=== PATIENT | male | born 1955 | race Caucasian/White ===

== ENCOUNTER 2020-03-17 08:37 | Outpatient (REF) | payer BC, SELFPAY ==
[2020-03-17 11:53] LABS: Estimated Average Glucose 163 mg/dL; Hemoglobin A1c % 7.3 %
[2020-03-17 12:11] LABS: Alanine Aminotransferase 25 U/L (0-40); Albumin Level 4.6 g/dL (3.5-5.0); Alkaline Phosphatase 60 U/L (39-117); Anion Gap 14 (12-20); Aspartate Amino Transferase 18 U/L (5-37); Blood Urea Nitrogen 14 mg/dL (9-16); Calcium 9.2 mg/dL (8.4-10.2); Carbon Dioxide 27 mmol/L (22-29); Chloride 102 mmol/L (96-108); Cholesterol 128 mg/dL; Estimated Glomerular Filt Rate > 60; Glucose Fasting 159 mg/dL (60-99); HDL Cholesterol 31 mg/dL; LDL Cholesterol Calculated 62 mg/dl; Potassium 4.4 mmol/l (3.3-5.1); Sodium 139 mmol/L (135-145); Total Protein 7.2 g/dL (6.5-8.0); Triglycerides 179 mg/dL
== END 2020-03-17 08:38 | disposition home or self-care (01) ==
LOC: HO.MANLR 08:37
PROVIDERS: PCP Internal Medicine; Visit Provider Internal Medicine
DX: E11.9 Type 2 diabetes mellitus without complications (principal)
CPT/HCPCS: 80053; 80061; 83036

== ENCOUNTER 2020-06-28 07:43 | Outpatient (REF) | payer BC, SELFPAY ==
[2020-06-28 12:04] LABS: Alanine Aminotransferase 29 U/L (0-40); Albumin Level 4.5 g/dL (3.5-5.0); Alkaline Phosphatase 65 U/L (39-117); Anion Gap 11 (12-20); Aspartate Amino Transferase 20 U/L (5-37); Bilirubin Total 2.5 mg/dL (0.0-1.0); Blood Urea Nitrogen 18 mg/dL (9-16); Calcium 9.3 mg/dL (8.4-10.2); Carbon Dioxide 31 mmol/L (22-29); Chloride 101 mmol/L (96-108); Cholesterol 125 mg/dL; Estimated Glomerular Filt Rate > 60; Glucose Fasting 169 mg/dL (60-99); HDL Cholesterol 30 mg/dL; LDL Cholesterol Calculated 53 mg/dl; Sodium 139 mmol/L (135-145); Total Protein 7.2 g/dL (6.5-8.0); Triglycerides 211 mg/dL
[2020-06-28 12:06] LABS: Creatinine Urine 176.23 mg/dL; Microalbum/Creatinine Ratio Ur 7.3 ug/mg cr
[2020-06-28 12:35] LABS: Estimated Average Glucose 192 mg/dL; Hemoglobin A1c % 8.3 %
== END 2020-06-28 07:44 | disposition home or self-care (01) ==
LOC: HO.MANLR 07:43
PROVIDERS: PCP Internal Medicine; Visit Provider Internal Medicine
DX: E11.9 Type 2 diabetes mellitus without complications (principal)
CPT/HCPCS: 36415; 80053; 80061; 82043; 83036

== ENCOUNTER 2020-08-20 08:29 | Outpatient (REF) | payer BC, SELFPAY ==
[2020-08-20 12:34] LABS: Estimated Average Glucose 166 mg/dL; Hemoglobin A1c % 7.4 %
== END 2020-08-20 08:30 | disposition home or self-care (01) ==
LOC: HO.MANLDS 08:29
PROVIDERS: PCP Internal Medicine; Visit Provider Internal Medicine
DX: E11.9 Type 2 diabetes mellitus without complications (principal)
CPT/HCPCS: 36415; 83036

== ENCOUNTER 2020-11-15 08:01 | Outpatient (REF) | payer BC, SELFPAY ==
[2020-11-15 11:58] LABS: Estimated Average Glucose 151 mg/dL; Hemoglobin A1c % 6.9 %
== END 2020-11-15 08:02 | disposition home or self-care (01) ==
LOC: HO.MANLDS 08:01
PROVIDERS: PCP Internal Medicine; Visit Provider Internal Medicine
DX: E11.9 Type 2 diabetes mellitus without complications (principal)
CPT/HCPCS: 36415; 83036

== ENCOUNTER 2021-03-16 08:05 | Outpatient (REF) | payer BC, SELFPAY ==
[2021-03-16 11:11] LABS: Estimated Average Glucose 169 mg/dL; Hemoglobin A1c % 7.5 %
== END 2021-03-16 08:06 | disposition home or self-care (01) ==
LOC: HO.MANLDS 08:05
PROVIDERS: PCP Internal Medicine; Visit Provider Internal Medicine
DX: E11.9 Type 2 diabetes mellitus without complications (principal)
CPT/HCPCS: 36415; 83036

== ENCOUNTER 2021-06-15 08:36 | Outpatient (REF) | payer BC, SELFPAY ==
[2021-06-15 11:29] LABS: Estimated Average Glucose 200 mg/dL; Hemoglobin A1c % 8.6 %
[2021-06-15 11:51] LABS: Alanine Aminotransferase 21 U/L (0-40); Albumin Level 4.2 g/dL (3.5-5.0); Alkaline Phosphatase 76 U/L (39-117); Anion Gap 12 (12-20); Aspartate Amino Transferase 19 U/L (5-37); Bilirubin Total 2.1 mg/dL (0.0-1.0); Blood Urea Nitrogen 12 mg/dL (9-16); Calcium 9.2 mg/dL (8.4-10.2); Carbon Dioxide 27 mmol/L (22-29); Chloride 105 mmol/L (96-108); Cholesterol 127 mg/dL; Estimated Glomerular Filt Rate > 60; Glucose Fasting 205 mg/dL (60-99); HDL Cholesterol 30 mg/dL; LDL Cholesterol Calculated 50 mg/dl; Potassium 4.2 mmol/L (3.3-5.1); Sodium 140 mmol/L (135-145); Triglycerides 238 mg/dL
== END 2021-06-15 08:37 | disposition home or self-care (01) ==
LOC: HO.MANLDS 08:36
PROVIDERS: PCP Internal Medicine; Visit Provider Internal Medicine
DX: E11.9 Type 2 diabetes mellitus without complications (principal)
CPT/HCPCS: 36415; 80053; 80061; 83036

== ENCOUNTER 2021-06-22 11:07 | Outpatient (REF) | payer BC, SELFPAY ==
[2021-06-22 11:19] LABS: Appearance Urine HAZY; Color Urine YELLOW; Glucose Urine UA 250 MG/DL (NEG); Leukocyte Esterase Urine NEG (NEG); Nitrite Urine NEG (NEG); Specific Gravity - Urine >= 1.030 (1.005-1.025); Urine Blood NEG (NEG); Urine Ketones NEG (NEG); Urine Protein NEG (NEG-TRACE)
[2021-06-22 11:44] LABS: Creatinine Urine 216.08 mg/dL
== END 2021-06-22 11:08 | disposition home or self-care (01) ==
LOC: HO.LNP 11:07
PROVIDERS: Visit Provider Internal Medicine
DX: E11.9 Type 2 diabetes mellitus without complications (principal)
CPT/HCPCS: 81003; 82043

== ENCOUNTER 2021-11-08 08:06 | Outpatient (REF) | payer BC, SELFPAY ==
[2021-11-08 11:38] LABS: Alanine Aminotransferase 20 U/L (0-40); Albumin Level 4.5 g/dL (3.5-5.0); Alkaline Phosphatase 74 U/L (39-117); Anion Gap 14 (12-20); Aspartate Amino Transferase 17 U/L (5-37); Bilirubin Total 2.3 mg/dL (0.0-1.0); Blood Urea Nitrogen 14 mg/dL (9-16); Calcium 9.3 mg/dL (8.4-10.2); Carbon Dioxide 29 mmol/L (22-29); Chloride 102 mmol/L (96-108); Cholesterol 121 mg/dL; Estimated Glomerular Filt Rate > 60; Glucose Random 167 mg/dL (60-115); HDL Cholesterol 31 mg/dL; LDL Cholesterol Calculated 60 mg/dl; Potassium 4.1 mmol/L (3.3-5.1); Sodium 141 mmol/L (135-145); Total Protein 7.3 g/dL (6.5-8.0); Triglycerides 151 mg/dL
[2021-11-08 11:42] LABS: Creatinine Urine 128.71 mg/dL; Microalbum/Creatinine Ratio Ur 9.3 ug/mg cr
[2021-11-08 11:46] LABS: Estimated Average Glucose 186 mg/dL; Hemoglobin A1c % 8.1 %
== END 2021-11-08 08:07 | disposition home or self-care (01) ==
LOC: HO.MANLDS 08:06
PROVIDERS: Visit Provider Internal Medicine
DX: E11.9 Type 2 diabetes mellitus without complications (principal)
CPT/HCPCS: 36415; 80053; 80061; 82043; 83036

== ENCOUNTER 2022-05-03 07:55 | Outpatient (REF) | payer MEDICARE, SELFPAY ==
[2022-05-03 12:04] LABS: Creatinine Urine 172.91 mg/dL; Microalbum/Creatinine Ratio Ur 14.4 ug/mg cr
[2022-05-03 12:25] LABS: Alanine Aminotransferase 26 U/L (0-40); Alkaline Phosphatase 89 U/L (39-117); Anion Gap 13 (12-20); Aspartate Amino Transferase 20 U/L (5-37); Bilirubin Total 2.7 mg/dL (0.0-1.0); Blood Urea Nitrogen 17 mg/dL (9-16); Calcium 8.8 mg/dL (8.4-10.2); Carbon Dioxide 26 mmol/L (22-29); Chloride 102 mmol/L (96-108); Cholesterol 142 mg/dL; Estimated Glomerular Filt Rate > 60; Glucose Random 245 mg/dL (60-115); HDL Cholesterol 22 mg/dL; Potassium 3.8 mmol/L (3.3-5.1); Sodium 137 mmol/L (135-145); Total Protein 6.8 g/dL (6.5-8.0); Triglycerides 474 mg/dL
[2022-05-03 12:28] LABS: Estimated Average Glucose 260 mg/dL; Hemoglobin A1c % 10.7 %
== END 2022-05-03 07:56 | disposition home or self-care (01) ==
LOC: HO.MANLDS 07:55
PROVIDERS: Visit Provider Internal Medicine
DX: E11.9 Type 2 diabetes mellitus without complications (principal)
CPT/HCPCS: 36415; 80053; 80061; 82043; 83036

== ENCOUNTER 2022-08-15 08:19 | Outpatient (REF) | payer MEDICARE, SELFPAY ==
[2022-08-15 11:44] LABS: Estimated Average Glucose 272 mg/dL; Hemoglobin A1c % 11.1 %
== END 2022-08-15 08:20 | disposition home or self-care (01) ==
LOC: HO.MANLDS 08:19
PROVIDERS: Visit Provider Internal Medicine
DX: E11.9 Type 2 diabetes mellitus without complications (principal)
CPT/HCPCS: 36415; 83036

== ENCOUNTER 2022-11-22 08:12 | Outpatient (REF) | payer MEDICARE, SELFPAY ==
[2022-11-22 14:07] LABS: Estimated Average Glucose 166 mg/dL; Hemoglobin A1c % 7.4 %
[2022-11-22 14:34] LABS: Alanine Aminotransferase 27 U/L (0-40); Albumin Level 4.5 g/dL (3.5-5.0); Alkaline Phosphatase 65 U/L (39-117); Anion Gap 14 (12-20); Aspartate Amino Transferase 22 U/L (5-37); Bilirubin Total 1.8 mg/dL (0.0-1.0); Blood Urea Nitrogen 11 mg/dL (9-16); Carbon Dioxide 28 mmol/L (22-29); Chloride 105 mmol/L (96-108); Cholesterol 145 mg/dL; Estimated Glomerular Filt Rate > 60; Glucose Random 169 mg/dL (60-115); HDL Cholesterol 31 mg/dL; LDL Cholesterol Calculated 54 mg/dl; Potassium 4.5 mmol/L (3.3-5.1); Sodium 142 mmol/L (135-145); Total Protein 7.8 g/dL (6.5-8.0); Triglycerides 303 mg/dL
[2022-11-22 14:51] LABS: Creatinine Urine 44.57 mg/dL; Microalbumin Urine < 5.0 mg/L
== END 2022-11-22 08:13 | disposition home or self-care (01) ==
LOC: HO.MANLDS 08:12
PROVIDERS: Visit Provider Internal Medicine
DX: E11.9 Type 2 diabetes mellitus without complications (principal)
CPT/HCPCS: 36415; 80053; 80061; 82043; 83036

== ENCOUNTER 2023-03-06 07:53 | Outpatient (REF) | payer MEDICARE, SELFPAY ==
[2023-03-06 13:40] LABS: Estimated Average Glucose 209 mg/dL; Hemoglobin A1c % 8.9 % (<6.0)
[2023-03-06 13:49] LABS: Alanine Aminotransferase 22 U/L (0-40); Albumin Level 4.2 g/dL (3.5-5.0); Alkaline Phosphatase 89 U/L (39-117); Anion Gap 10 (12-20); Aspartate Amino Transferase 22 U/L (5-37); Bilirubin Total 1.4 mg/dL (0.0-1.0); Blood Urea Nitrogen 9 mg/dL (9-16); Calcium 9.7 mg/dL (8.4-10.2); Carbon Dioxide 32 mmol/L (22-29); Chloride 101 mmol/L (96-108); Cholesterol 119 mg/dL (<200); Estimated Glomerular Filt Rate > 60; Glucose Random 150 mg/dL (60-115); HDL Cholesterol 30 mg/dL (>40); LDL Cholesterol Calculated 44 mg/dL (<100); Potassium 3.9 mmol/L (3.3-5.1); Sodium 139 mmol/L (135-145); Total Protein 7.4 g/dL (6.5-8.0); Triglycerides 226 mg/dL (<150)
== END 2023-03-06 07:54 | disposition home or self-care (01) ==
LOC: HO.MANLDS 07:53
PROVIDERS: Visit Provider Internal Medicine
DX: E11.9 Type 2 diabetes mellitus without complications (principal)
CPT/HCPCS: 36415; 80053; 80061; 83036

== ENCOUNTER 2023-06-06 08:15 | Outpatient (REF) | payer MEDICARE, SELFPAY ==
[2023-06-06 13:54] LABS: Estimated Average Glucose 226 mg/dL; Hemoglobin A1c % 9.5 % (<6.0)
[2023-06-06 13:56] LABS: Alanine Aminotransferase 27 U/L (0-40); Albumin Level 4.2 g/dL (3.5-5.0); Alkaline Phosphatase 64 U/L (39-117); Anion Gap 14 (12-20); Aspartate Amino Transferase 21 U/L (5-37); Bilirubin Total 1.7 mg/dL (0.0-1.0); Blood Urea Nitrogen 13 mg/dL (9-16); Calcium 9.3 mg/dL (8.4-10.2); Carbon Dioxide 28 mmol/L (22-29); Chloride 101 mmol/L (96-108); Cholesterol 151 mg/dL (<200); Estimated Glomerular Filt Rate > 60; Glucose Random 180 mg/dL (60-115); HDL Cholesterol 31 mg/dL (>40); LDL Cholesterol Calculated 72 mg/dL (<100); Potassium 4.3 mmol/L (3.3-5.1); Sodium 139 mmol/L (135-145); Total Protein 7.3 g/dL (6.5-8.0); Triglycerides 240 mg/dL (<150)
[2023-06-06 14:15] LABS: Creatinine Urine 73.07 mg/dL; Microalbum/Creatinine Ratio Ur 6.8 ug/mg cr (<30)
== END 2023-06-06 08:16 | disposition home or self-care (01) ==
LOC: HO.MANLDS 08:15
PROVIDERS: Visit Provider Internal Medicine
DX: E11.9 Type 2 diabetes mellitus without complications (principal)
CPT/HCPCS: 36415; 80053; 80061; 82043; 82570; 83036

== ENCOUNTER 2023-10-24 08:12 | Outpatient (REF) | payer MEDICARE, SELFPAY ==
[2023-10-24 13:37] LABS: Alanine Aminotransferase 22 U/L (0-40); Albumin Level 4.5 g/dL (3.5-5.0); Alkaline Phosphatase 71 U/L (39-117); Anion Gap 14 (12-20); Aspartate Amino Transferase 20 U/L (5-37); Bilirubin Total 2.5 mg/dL (0.0-1.0); Blood Urea Nitrogen 18 mg/dL (9-16); Calcium 9.7 mg/dL (8.4-10.2); Carbon Dioxide 27 mmol/L (22-29); Chloride 103 mmol/L (96-108); Estimated Glomerular Filt Rate > 60; Glucose Random 167 mg/dL (60-115); Potassium 4.3 mmol/L (3.3-5.1); Sodium 140 mmol/L (135-145); Total Protein 7.6 g/dL (6.5-8.0)
[2023-10-24 13:44] LABS: Estimated Average Glucose 180 mg/dL; Hemoglobin A1c % 7.9 % (<6.0)
== END 2023-10-24 08:13 | disposition home or self-care (01) ==
LOC: HO.MANLDS 08:12
PROVIDERS: Visit Provider Internal Medicine
DX: E11.9 Type 2 diabetes mellitus without complications (principal)
CPT/HCPCS: 36415; 80053; 83036

== ENCOUNTER 2024-02-04 07:47 | Outpatient (REF) | payer MEDICARE, SELFPAY ==
[2024-02-04 13:41] LABS: Estimated Average Glucose 169 mg/dL; Hemoglobin A1C 241.8436 umol/L; Hemoglobin A1c % 7.5 % (<6.0); Total Hemoglobin (HGBA1C) 4169.4433 umol/L
[2024-02-04 14:20] LABS: Alanine Aminotransferase 18 U/L (0-40); Albumin Level 4.4 g/dL (3.5-5.0); Alkaline Phosphatase 92 U/L (39-117); Anion Gap 13 (12-20); Aspartate Amino Transferase 30 U/L (5-37); Bilirubin Total 1.8 mg/dL (0.0-1.0); Blood Urea Nitrogen 12 mg/dL (9-16); Calcium 9.7 mg/dL (8.4-10.2); Carbon Dioxide 27 mmol/L (22-29); Chloride 104 mmol/L (96-108); Estimated Glomerular Filt Rate > 60; Glucose Random 146 mg/dL (60-115); Sodium 140 mmol/L (135-145); Total Protein 7.7 g/dL (6.5-8.0)
== END 2024-02-04 07:48 | disposition home or self-care (01) ==
LOC: HO.MANLDS 07:47
PROVIDERS: Visit Provider Internal Medicine
DX: E11.9 Type 2 diabetes mellitus without complications (principal)
CPT/HCPCS: 36415; 80053; 83036

== ENCOUNTER 2024-06-18 07:41 | Outpatient (REF) | payer MEDICARE, SELFPAY ==
--- OUTSIDE RECORDS SUMMARY | 2024-06-18 07:44 | XMS_ITS | Data Portability ---
Author Organization [facility] Address [address] [place] [address] Assessment Encounter Date Assessment Date Assessment LastModified by Organization Details LastModified Time 11/29/2022 11/29/2022 [id number] [place] [id number] (QUALITY REVIEW TRAINER) [facility] MODERATE MUST MEET 2 OUT OF 3 ELEMENTS: PROBLEMS, DATA OR RISK ELEMENT 1: PROBLEMS ADDRESSED 1 OR MORE CHRONIC ILLNESS WITH EXACERBATION OR 2 OR MORE STABLE CHRONIC ILLNESSES OR 1 UNDIAGNOSED NEW PROBLEM OR 1 ACUTE ILLNESS W/SYMPTOMS OR 1 ACUTE COMPLICATED INJURY ELEMENT 2: DATA MUST MEET 1 OF 3 CATEGORIES CATEGORY 1: REVIEW OF PRIOR EXTERNAL NOTES, REVIEW OF RESULTS, ORDERING OF EACH TEST, ASSESSMENT REQUIRING INDEPENDENT HISTORIAN OR CATEGORY 2: INDEPENDENT INTERPRETATION OF TESTS BY ANOTHER PHYSICIAN OR SPECIALIST OR CATEGORY 3: DISCUSSION OF MGT OR TEST INTERPRETATION W/EXTERNAL PHYSICIAN OR SPECIALIST ELEMENT 3: RISK RISK OF COMPLICATIONS AND/OR MORBIDITY OR MORTALITY OF PATIENT MANAGEMENT PROVIDER MUST THOROUGHLY DOCUMENT EACH ELEMENT THAT IS COVERED Not available 11/29/2022 12:07:26 03/12/2023 03/12/2023 [id number] [place] [id number] (QUALITY REVIEW TRAINER) [facility] MODERATE MUST MEET 2 OUT OF 3 ELEMENTS: PROBLEMS, DATA OR RISK ELEMENT 1: PROBLEMS ADDRESSED 1 OR MORE CHRONIC ILLNESS WITH EXACERBATION OR 2 OR MORE STABLE CHRONIC ILLNESSES OR 1 UNDIAGNOSED NEW PROBLEM OR 1 ACUTE ILLNESS W/SYMPTOMS OR 1 ACUTE COMPLICATED INJURY ELEMENT 2: DATA MUST MEET 1 OF 3 CATEGORIES CATEGORY 1: REVIEW OF PRIOR EXTERNAL NOTES, REVIEW OF RESULTS, ORDERING OF EACH TEST, ASSESSMENT REQUIRING INDEPENDENT HISTORIAN OR CATEGORY 2: INDEPENDENT INTERPRETATION OF TESTS BY ANOTHER PHYSICIAN OR SPECIALIST OR CATEGORY 3: DISCUSSION OF MGT OR TEST INTERPRETATION W/EXTERNAL PHYSICIAN OR SPECIALIST ELEMENT 3: RISK RISK OF COMPLICATIONS AND/OR MORBIDITY OR MORTALITY OF PATIENT MANAGEMENT PROVIDER MUST THOROUGHLY DOCUMENT EACH ELEMENT THAT IS COVERED Not available 03/12/2023 11:02:08 10/31/2023 10/31/2023 [id number] [place] [id number] (QUALITY REVIEW TRAINER) [facility] MODERATE MUST MEET 2 OUT OF 3 ELEMENTS: PROBLEMS, DATA OR RISK ELEMENT 1: PROBLEMS ADDRESSED 1 OR MORE CHRONIC ILLNESS WITH EXACERBATION OR 2 OR MORE STABLE CHRONIC ILLNESSES OR 1 UNDIAGNOSED NEW PROBLEM OR 1 ACUTE ILLNESS W/SYMPTOMS OR 1 ACUTE COMPLICATED INJURY ELEMENT 2: DATA MUST MEET 1 OF 3 CATEGORIES CATEGORY 1: REVIEW OF PRIOR EXTERNAL NOTES, REVIEW OF RESULTS, ORDERING OF EACH TEST, ASSESSMENT REQUIRING INDEPENDENT HISTORIAN OR CATEGORY 2: INDEPENDENT INTERPRETATION OF TESTS BY ANOTHER PHYSICIAN OR SPECIALIST OR CATEGORY 3: DISCUSSION OF MGT OR TEST INTERPRETATION W/EXTERNAL PHYSICIAN OR SPECIALIST ELEMENT 3: RISK RISK OF COMPLICATIONS AND/OR MORBIDITY OR MORTALITY OF PATIENT MANAGEMENT PROVIDER MUST THOROUGHLY DOCUMENT EACH ELEMENT THAT IS COVERED Not available 10/31/2023 09:08:16 02/13/2024 02/13/2024 [id number] [place] [id number] (QUALITY REVIEW TRAINER) [facility] MODERATE MUST MEET 2 OUT OF 3 ELEMENTS: PROBLEMS, DATA OR RISK ELEMENT 1: PROBLEMS ADDRESSED 1 OR MORE CHRONIC ILLNESS WITH EXACERBATION OR 2 OR MORE STABLE CHRONIC ILLNESSES OR 1 UNDIAGNOSED NEW PROBLEM OR 1 ACUTE ILLNESS W/SYMPTOMS OR 1 ACUTE COMPLICATED INJURY ELEMENT 2: DATA MUST MEET 1 OF 3 CATEGORIES CATEGORY 1: REVIEW OF PRIOR EXTERNAL NOTES, REVIEW OF RESULTS, ORDERING OF EACH TEST, ASSESSMENT REQUIRING INDEPENDENT HISTORIAN OR CATEGORY 2: INDEPENDENT INTERPRETATION OF TESTS BY ANOTHER PHYSICIAN OR SPECIALIST OR CATEGORY 3: DISCUSSION OF MGT OR TEST INTERPRETATION W/EXTERNAL PHYSICIAN OR SPECIALIST ELEMENT 3: RISK RISK OF COMPLICATIONS AND/OR MORBIDITY OR MORTALITY OF PATIENT MANAGEMENT PROVIDER MUST THOROUGHLY DOCUMENT EACH ELEMENT THAT IS COVERED Not available 02/13/2024 09:51:55 Plan of Treatment Reminders Order Date Submit Date Provider Last Modified By Organization Details Last Modified Time Details Appointments FOLLOW UP 15 2024 10:45A M DR MEEHAN Not available Not available Not available Lab lipid panel, serum 2023 [facility], [address] [place] [address], [id number], 02/13/2024 09:58:02 CMP, serum or plasma 2023 024 [facility], [address] [place] [address], [id number], 02/13/2024 09:58:01 PSA, serum or plasma 2023 024 [facility], [address] [place] [address], [id number], 02/13/2024 09:58:02 HbA1c (hemoglo bin A1c), blood 2023 024 [facility], [address] [place] [address], [id number], 02/13/2024 09:58:02 HbA1c (hemoglo bin A1c), blood 2022 023 [facility], [address] [place] [address], [id number], 06/07/2023 11:31:22 CMP, serum or plasma 2022 023 [facility], [address] [place] [address], [id number], 06/07/2023 11:31:23 HbA1c (hemoglo bin A1c), blood 2023 024 [facility], [address] [place] [address], [id number], 06/07/2023 11:31:22 CMP, serum or plasma 2023 024 [facility], [address] [place] [address], [id number], 06/07/2023 11:31:23 Referral None recorded . Procedures None recorded . Surgeries None recorded . Imaging None recorded . Medication Orders None recorded . Patient TargetsNo targets recorded. Patient Instructions Encounter Date Encounter Id Patient Instructions Last Modified By Organization Details Last Modified Time 07/06/2023 [id number] learning about type 2 diabetes Not available 07/06/2023 09:34:05 type 2 diabetes: care instructions Not available 07/06/2023 09:34:04 02/13/2024 [id number] migraine aura without a headache: care instructions Not available 02/13/2024 09:55:59 learning about type 2 diabetes Not available 02/13/2024 09:56:00 type 2 diabetes: care instructions Not available 02/13/2024 09:56:00 Reason for Referral None Reported. Results Created Date Observation Date Name Description Value Unit Range Abnormal Flag Note LastModifiedBy Organization Detail LastModifiedTime 02/04/20 24 02/04/2024 HbA1c (hemo globi n A1c), blood A1C 7.5 abnormal Not Available [facility] (Medical Records) [address] [place] [address], [id number], 02/05/2024 11:36:11 Result Notes None recorded. 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 Not Available [facility] 3 11:34:57 [facility] 52037957 Completed 201707/09/2019 Ed Meehan DO [address] [place] [address], [phone], [facility] 0 09:35:44 Vertigo 840001215 Completed 201702/13/2024 Ed Meehan DO [address] [place] [address], [phone], [facility] 4 09:54:06 Migraine aura without headache 244859503 Completed 201702/13/2024 migraine causes vertigo Ed Meehan DO [address] [place] [address], [phone], [facility] 4 09:54:00 M??ni??r e's disease 19675674 Active 2021 Not Available [facility] 3 11:34:57 Type 2 diabetes mellitus 25018909 Active 2017 Not Available [facility] 3 11:34:57 Problem Notes None recorded. Procedures Surgical History Date Name Laterality Status Provider Name and Address Organization Details Recorded Time 4 Colonoscopy completed Becky Delgado [facility] 11/06/2018 10:14:37 Imaging Results None recorded. Procedure Notes None recorded. Medical Equipment None Reported. Allergies Allergen ID Allergen Name Allergen Category Reaction Reaction Severity Criticality Documentation Date Start Date Code Code System Note Provider Name and Address Organization Details Recorded Time 4053 Januvia medicatio n diarrhea Not available Not available 12/17/2019 89129 6 RxNorm Becky Delgado [facility] 0 10:52:20 Medications Name Sig Start Date Stop Date Status Note LastModified by Organization Details LastModified Time atorvastati n 80 mg tablet TAKE 1 TABLET BY MOUTH EVERYDAY AT BEDTIME 2023 active Not Available Not Available Not Avai lable atenolol 25 mg tablet take 1 tablet by mouth once a day 07/08 completed Not Available Not Available Not Available gemfibrozil 600 mg tablet TAKE 1 TABLET BY MOUTH TWICE A DAY active Not Available Not Available No t Available metformin 1,000 mg tablet TAKE 1 TABLET BY MOUTH TWICE A DAY active Not Available Not Available No t Available gabapentin 300 mg capsule TAKE 4 CAPSULES BY MOUTH AT BEDTIME active Not Available Not Available No t Available metformin ER 500 mg tablet,exte nded release 24 hr TAKE 1 TABLET BY MOUTH EVERY DAY 07/08 completed Not Available Not Available Not Available Pneumovax-2 3 25 mcg/0.5 mL injection syringe PHARMACY ADMINISTE RED 07/05 completed Not Available Not Available Not Available Aspir-81 Take one tablet every day. 11/06 completed Not Available Not Available Not Available GaviLyte-G 236 gram-22.74 gram-6.74 gram-5.86 gram oral solution 07/08 completed Not Available Not Available Not Available Jardiance 10 mg tablet TAKE 1 TABLET BY MOUTH EVERY DAY 2024 active Not Available Not Available Not Avai lable Trulicity 1.5 mg/0.5 mL subcutaneou s pen injector INJECT 0.5 ML SUBCUTANE OUSLY WEEKLY FOR 28 DAYS 2023 active Not Available Not Available Not Avai lable Trulicity 0.75 mg/0.5 mL subcutaneou s pen injector INJECT 0.75 MG EVERY WEEK BY SUBCUTANE OUS ROUTE FOR 30 DAYS. 03/23 completed Not Available Not Available Not Available Afluria (PF) 45 mcg(15 mcg x 3)/0.5 mL intramuscul ar syringe 12/12 completed Not Available Not Available Not Available Shingrix (PF) 50 mcg/0.5 mL intramuscul ar suspension, kit PHARMACY ADMINISTE RED 07/05 completed Not Available Not Available Not Available Bydureon BCise 2 mg/0.85 mL subcutaneou s auto-inject or INJECT 2MG SUBCUTANE OUSLY EVERY WEEK active Not Available Not Available No t Available Afluria Quad (PF) 60 mcg (15 mcg x 4)/0.5 mL IM syringe 03/15 completed Not Available Not Available Not Available Afluria Qd 2018- (36 mos up)(PF)60 mcg (15 mcg x4)/0.5 mL IM syringe 02/12 completed Not Available Not Available Not Available Fluzone Quad (PF) 60 mcg (15 mcg x 4)/0.5 mL IM syringe TO BE ADMINISTE RED BY PHARMACIS T FOR IMMUNIZAT ION 12/16 completed Not Available Not Available Not Available Trulicity 3 mg/0.5 mL subcutaneou s pen injector INJECT 0.5 ML SUBCUTANE OUSLY WEEKLY 10/30 completed Not Available Not Available Not Available Vitals Date Recorded Body height Body mass index (BMI) Body weight Heart rate Oxygen saturation Oxygen saturation in Arterial blood by Pulse oximetry Systolic blood pressure Diastolic blood pressure Provider Name and Address Organization Details Last Updated DateTime 3 168.28 cm 26.4 kg/m2 53549.7 4 g 94 /min 96 % 96 % 128 mm[Hg] 74 mm[Hg] [facility] 3 11:52:08 Date Recorded Body height Body mass index (BMI) Body weight Heart rate Oxygen saturation Oxygen saturation in Arterial blood by Pulse oximetry Systolic blood pressure Diastolic blood pressure Provider Name and Address Organization Details Last Updated DateTime 3 168.28 cm 26.7 kg/m2 33429.9 3 g 93 /min 95 % 95 % 108 mm[Hg] 75 mm[Hg] Juli Huang [facility] 3 10:40:42 Date Recorded Body height Body mass index (BMI) Body weight Systolic blood pressure Diastolic blood pressure Provider Name and Address Organization Details Last Updated DateTime 07/06/2023 168.28 cm 26.7 kg/m2 68323.93 g 140 mm[Hg] 64 mm[Hg] Millieanna Thompsonmond [facility] 4 09:10:26 Date Recorded Body height Body mass index (BMI) Body weight Heart rate Oxygen saturation Oxygen saturation in Arterial blood by Pulse oximetry Systolic blood pressure Diastolic blood pressure Provider Name and Address Organization Details Last Updated DateTime 4 168.28 cm 26.6 kg/m2 88099.3 3 g 81 /min 95 % 95 % 120 mm[Hg] 68 mm[Hg] [facility] 4 08:54:21 Date Recorded Body height Body mass index (BMI) Body weight Heart rate Oxygen saturation Oxygen saturation in Arterial blood by Pulse oximetry Systolic blood pressure Diastolic blood pressure Provider Name and Address Organization Details Last Updated DateTime 168.91 cm 26.6 kg/m2 92970.9 3 g 90 /min 98 % 98 % 124 mm[Hg] 74 mm[Hg] Gregoryruben Miller [facility] 4 09:41:04 Social History Question Answer Notes LastModified by Organizat ion Details LastModified Time Tobacco Smoking Status Never Smoker Not Available [facility] 02/17/2020 03:36:23 What Was The Date Of Your Most Recent Tobacco Screening? 02/13/2024 [email or web address] Information not available 02/13/2024 Do You Use Any Illicit Or Recreational Drugs? No Information not available 06/22/2021 Do You Or Have You Ever Used Any Other Forms Of Tobacco Or Nicotine? No Information not available 06/22/2021 Sex: Unknown Functional Status None recorded. Mental Status None recorded. Family History Nothing Reported. Medical History No medical history recorded. Immunizations Vaccine Type Date Status Note Provider Nam e and Address Organization Details Recorded Time COVID-19, mRNA, LNP-S, PF, 100 mcg/0.5mL dose or 50 mcg/0.25mL dose 02/17/20 21 [facility]2021 09:25:31 Influenza, split virus, quadrivalent, preservative 02/17/20 21 completed [facility] 03/23/2021 09:25:38 COVID-19, mRNA, LNP-S, PF, 100 mcg/0.5mL dose or 50 mcg/0.25mL dose 07/15/19 22 completed Jodi Acuña [facility] 07/18/2021 08:14:05 Influenza, split virus, quadrivalent, preservative 01/31/20 18 completed Ed Meehan DO [address] [place] [address], [phone], [facility] 01/31/2018 16:22:55 influenza, unspecified formulation 12/29/19 24 completed Christa Vora [facility] 01/01/2024 11:58:23 Influenza, split virus, quadrivalent, preservative 01/16/20 19 completed Becky Delgado [facility] 05/21/2019 11:59:44 Influenza, split virus, quadrivalent, preservative 12/11/19 20 completed Ed Meehan DO [address] [place] [address], [phone], [facility] Internal [facility] 12/13/2019 16:42:57 COVID-19, mRNA, LNP-S, PF, 100 mcg/0.5mL dose or 50 mcg/0.25mL dose 04/28/19 21 completed Ed Meehan DO [address] [place] [address], [phone], [facility] 07/05/2020 10:03:07 COVID-19, mRNA, LNP-S, PF, 100 mcg/0.5mL dose or 50 mcg/0.25mL dose 05/28/19 21 completed Ed Meehan DO [address] [place] [address], [phone], [facility] 07/05/2020 10:03:15 pneumococcal polysaccharide PPV23 12/19/19 20 completed Ed Meehan DO [address] [place], [phone], [facility] 07/05/2020 10:03:31 zoster, unspecified formulation 12/19/19 20 completed Ed Alex DO [address] [place], [address], [facility] 07/05/2020 10:03:53 zoster recombinant 07/20/19 21 completed Ed RobbinRolly Meehan DO [address] [place], [address], [facility] 07/21/2020 07:14:53 Past Encounters Encounter ID Performer Location Encounter Start Date Encounter Closed Date Diagnosis/Indication Diagnosis SNOMED-CT Code Diagnosis ICD10 Code Diagnosis Note [id number] Ed Meehan [facility] [address] [place] [address],[place] [address] 08/20/2017 13:54:33 08/20/2017 15:06:47 Diabetes mellitus 71520708 E11.9 doing well admits to some diet prob instructed agian re carbs intake and night time eating portion control Essential hypertension 43813302 I10 stable with excellent results at work was initially high but now has improved quite a bit [id number] Ed Meehan [facility] [address] [place] [address],[place] [address] 12/12/2017 13:50:14 12/12/2017 14:31:22 Type 2 diabetes mellitus 81770667 E11.9 no change in issues or meds will cont current tx Essential hypertension 89007211 I10 stable with excellent results at work was initially high but now has improved quite a bit [id number] Ed Meehan [facility] [address] [facility],[place] [address] [facility] [place] [address] 03/15/2018 10:15:42 03/15/2018 15:31:17 Type 2 diabetes mellitus 40377624 E11.9 no change in issues or meds will be better with daily diet and will drop this a1c on hsi own without meds will rechk in june Essential hypertension 20106187 I10 stable with excellent results at work was initially high but now has improved quite a bit Adult heal th examination 944007742 Z00.00 Hypertriglyceridemia 302 459667 E78.2 LDL 57 doing great will cont atorvastat well tolerated [id number] Ed Meehan [facility] [address] [facility] [address] [place] [address] 07/05/2018 10:30:21 07/05/2018 12:19:52 Type 2 diabetes mellitus 86057599 E11.9 still elevated a1c at 7.8 no change in issues or meds will be better with daily diet and will drop this a1c on his own without meds will rechk in october BUT IF IT IS STILL ELEVATED A!C WE WILL ADD METFORMIN Essential hypertension 49384981 I10 stable with excellent results at work was initially high but now has improved quite a bit [id number] Ed Meehan [facility] Internal [facility] [address] [place] [address] 11/06/2018 10:02:10 11/06/2018 11:00:55 Essential hypertension 02182275 I10 stable with excellent results at work was initially high but now has improved quite a bit Type 2 constantine betes mellitus 92501639 E11.9 a1c is still elevated at 8 we will review his diet at length IT IS STILL ELEVATED A!C WE WILL ADD METFORMIN 500 and rechk in 3 mo Hypertriglyceridemia 302 545414 E78.2 LDL 57 doing great will cont atorvastat well tolerated [id number] Ed Meehan [facility] [address] [place] [address] 02/12/2019 09:55:17 02/12/2019 11:24:31 Type 2 diabetes mellitus 17107290 E11.9 a1c is down to 7.4 was 8 we will review his diet at length doing ok with with metformin cont his walking and wgt loss and rechk in 3 mo Hypertriglyceridemia 302 237660 E78.2 level is over 500 so unable to calc the LDL will cont to work on diet Essential hypertension 28811322 I10 stable with excellent results at work no change in meds [id number] Ed Meehan [facility] [address] [facility],[place] [address] 05/21/2019 11:57:32 05/21/2019 13:38:48 Essential hypertension 71758666 I10 stable with excellent results at work no change in meds Type 2 constantine betes mellitus 14764533 E11.9 A1C elevated to 9.3 from 8.0 Discussed importance of lowering glucose dramatical ly Will increase metformin to BID 1000mg Hypertriglyceridemia 302 867354 E78.2 level is over 800 so unable to calc the LDL will cont to work on diet and take gem daily [id number] Ed Meehan, [facility] [address] [facility] [address] 07/09/2019 09:22:54 07/09/2019 10:02:32 Active or passive immunization 680235122 Z23 Hepatitis C screening 41 7986591 Z11.59 Type 2 constantine betes mellitus 86275384 E11.9 A1C was elevated to 9.3 from 8.0 but is now down to 8.9 Discussed importance of lowering glucose dramatical ly as he is doiung Will increase metformin to BID 1000mg Elevated blood-pressure reading without diagnosis of hypertension 397246146 R03.0 bp has been stable since off the atenolol belive no longer hypertensi ve now with good diet and exercise we will cont to hold the atenolol and monitor [id number] Ed Meehan [facility] [address] [facility],[place] [address] 10/20/2019 11:01:18 10/20/2019 11:53:24 Type 2 diabetes mellitus 92857701 E11.9 A1C was elevated to10.1 and wa s 8.9, 9.3 from 8.0 Discussed importance of lowering glucose metformin to BID 1000mg and is compliant bc of this climb, we will start januvia 100 samples given and rechk in 2 mo a1c if this doesnt work we will have to try to get him Trulicity Hypertriglyceridemia 302 009867 E78.2 level is over 800 so unable to calc the LDL will cont to work on diet and take gem daily [id number] Ed Meehan [facility] [address] [facility],[place] [address] 12/17/2019 10:21:06 12/17/2019 11:14:29 Type 2 diabetes mellitus 22698117 E11.9 A1C was improved to 7.8 from 10.1 and wa s 8.9, 9.3 from 8.0 Discussed importance of lowering glucose metformin to BID 1000mg and is compliant bc of the initial lab being high he was tried on januvia but did not tolerate this instead he cut out his sugars and carbs and exercised every day and is now down to 7.8 Hepatitis C screening 41 5633283 Z11.59 Hypertriglyceridemia 302 205538 E78.2 level is over 800 so unable to calc the LDL will cont to work on diet and take gem daily [id number] Ed Meehan, [facility] [address] [facility], [place] [facility] [place] [address] 03/30/2020 08:42:40 03/30/2020 11:36:28 M??ni??re's disease 19278953 H81.09 Type 2 constantine betes mellitus 63780204 E11.9 A1C was improved to 7.3 and was 7.8 from 10.1 and wa s 8.9, 9.3 from 8.0 Discussed importance of lowering glucose and he is continuing to do well metformin to BID 1000mg and is compliant bc of the initial lab being high he was tried on januvia but did not tolerate this instead he cut out his sugars and carbs and exercised every day and is now down to 7.8 Vertigo 367672027 R42 asympotmat ic for 3 years Hypertriglyceridemia 302 113283 E78.2 LDL is now 63 triglyceri althea are only 179 was >800 will cont to work on diet and take gem daily doing awesome [id number] Ed Meehan [facility] [address] [facility] [address] [place], [place] [facility] [place] [address] 07/05/2020 09:56:48 07/05/2020 10:26:24 Type 2 diabetes mellitus 17188686 E11.9 A1C has worsened to 8.3 from 7.3 and was 7.8 from 10.1 and wa s 8.9, 9.3 from 8.0 Discussed importance of lowering glucose and he is continuing to do well metformin to BID 1000mg and is compliant we will try to get him some trulicity from the insurance as he is an ideal he cut out his sugars and carbs and exercised every day Hypertriglyceridemia 302 528619 E78.2 LDL is was 63 triglyceri althea are only 179 was >800 will cont to work on diet and take gem daily doing awesome in this regard [id number] Ed Meehan DO [facility] [address] [facility],[place] [address] 08/30/2020 10:01:08 08/30/2020 10:36:30 Type 2 diabetes mellitus 99489169 E11.9 has done extremely welll has lost 13 lbs feels good sleep is good appetite is good bowels ok and is tolerating the trulicity we will cont current tx plan and we will look towards cutting down the metformin at some point if this is persisting withn low glucose [id number] Ed Meehan DO [facility] [address] [facility],[place] [address] 12/01/2020 09:21:12 12/01/2020 14:31:04 Type 2 diabetes mellitus 79634740 E11.9 has done extremely welll a1c is down to 6.9 from 8.3 despite not a perfect diet has lost 13 lbs has kept the wgt off and lost 5 more lbs walking daily feels good sleep is good appetite is good bowels ok and is tolerating the trulicity we will cont current tx plan and increase the trulicity to 1.5 and we will look towards cutting down the metformin at some point if this is persisting withn low glucose Hypertriglyceridemia 302 [id number] E78.2 LDL is was 63 triglyceri althea are only 179 was >800 will cont to work on diet and take gem daily doing awesome in this regard [id number] Ed Meehan DO [facility] [address] [facility],[place] [address] 03/23/2021 09:16:11 03/23/2021 14:08:48 Type 2 diabetes mellitus [id number] E11.9 has done fair as his a1c is up to 7.7 prior was down to 6.9 from 8.3 despite not a perfect diet has lost 13 lbs but has gained 5 lbs back feels good sleep is good appetite is good bowels ok and is tolerating the trulicity but we will increase the dose we will cont current tx plan and increase the trulicity to 3 and we will look towards cutting down the metformin at some point if this is persisting withn low glucose [id number] Ed Meehan DO [facility] Internal [facility] [address] [facility],[place] [address] 06/22/2021 09:04:00 06/22/2021 10:35:00 Type 2 diabetes mellitus 14167019 E11.9 has done fair as his a1c is up to 8.6 and was 7.5 7.7 prior was down to 6.9relates has not been eating well at workfeels good sleep is good appetite is good bowels ok and is tolerating the trulicity we will cont current tx plan and and we will look towards cutting down the metformin at some point if he starts doing well again Hypertriglyceridemia 302 803474 E78.2 LDL is was 50 triglyceri althea are only 179 was >800 will cont to work on diet and take gem daily doing awesome in this regard Migraine a ura without headache [id number] G43.109 has been free for 6 years [id number] Ed Meehan DO [facility] Internal Medicine [address] [facility],[place] [address] 11/14/2021 10:31:55 11/14/2021 11:26:26 Type 2 diabetes mellitus [id number] E11.9 has done fair as his a1c is up to 8.1 but was 8.6 and was 7.5 7.7 prior was down to 6.9relates has not been eating well at workfeels good sleep is good appetite is good bowels ok and is tolerating the trulicity we will cont current tx plan and and we will look towards cutting down the metformin at some point if he starts doing well again Hypertriglyceridemia 302 684243 E78.2 LDL is was 50 triglyceri althea are only 179 was >800 will cont to work on diet and take gem daily doing awesome in this regard M??ni??re's disease 1344 5001 H81.09 stable on the gabapentin [id number] Ed Meehan [facility] Internal Medicine [address] [facility],[address] [facility] [place] [address] 05/12/2022 08:54:31 05/15/2022 16:29:20 Type 2 diabetes mellitus [id number] E11.9 has done fair as his a1c is up to 10.7 from 8.1 but was 8.6 and was 7.5 pt states this was all his prob with poor diet after mom passedrela deborah has not been eating well at workfeels good sleep is good appetite is good bowels ok and is tolerating the trulicityr e ck in august with regular lab Hypertriglyceridemia 302 518807 E78.2 LDL is was 50 triglyceri althea are only 179 was >800 will cont to work on diet and take gem daily doing awesome in this regard Migraine a ura without headache [id number] G43.109 has been free for 6 years and doing great on gabapentin started by dr hayley vela [id number] dE Meehan [facility] Internal Medicine [address] [facility], [address] [place] [facility] [place] [address] 08/21/2022 10:00:36 08/21/2022 11:29:27 Type 2 diabetes mellitus 45511001 E11.9 has done poorly as his a1c is up to 11.1 from 10.7 from 8.1 but was 8.6 and was 7.5 pt states has been limiting his sweets and has actually lost 6 lbsrelates has not been eating well at workfeels good sleep is good appetite is good bowels ok and is tolerating the trulicity but will try to increase to 3mg if availablew e will need to add jardiance and Migraine a ura without headache [id number] G43.109 has been free for 7 years and doing great on gabapentin started by dr hayley vela Vertigo [id number] R42 asympotmat ic for 3 years [id number] Ed Meehan [facility] Internal Medicine [address] [facility] [address],[place] [address] 11/29/2022 11:21:46 11/29/2022 12:22:58 Hypertriglyceridemia [id number] E78.2 LDL is was 54 ao trig at 300 is questionab le signif given he has been as high as 800 triglyceri althea are only 179 was >800 will cont to work on diet and take gem daily doing awesome in this regard Type 2 constantine betes mellitus 68728205 E11.9 has done poorly as his a1c is now down to 7.4 he was up to 11.1 from 10.7 pt states has been limiting his sweets and has actually lost 6 lbsrelates has not been eating well at work tolerating the jardiancef eels good sleep is good appetite is good bowels ok and is tolerating the trulicity but will try to increase to 3mg if availablea nd cont jardiance at 10mg Migraine a ura without headache [id number] G43.109 has been free for 7 years and doing great on gabapentin started by dr hayley vela [id number] Ed Meehan, [facility] Internal Medicine [address] [facility],[place] [address] 03/12/2023 10:29:53 03/12/2023 11:13:31 Type 2 diabetes mellitus 21856098 E11.9 has done poorly as his a1c is now down to 7.4 he was up to 11.1 from 10.7 pt states has been limiting his sweets and has actually lost 6 lbsrelates has not been eating well at work tolerating the jardiancef eels good sleep is good appetite is good bowels ok and is tolerating the trulicity but will try to increase to 3mg if availablea nd cont jardiance at 10mg Hypertriglyceridemia 302 400706 E78.2 LDL is was 54 ao trig at 300 is questionab le signif given he has been as high as 800 triglyceri althea are only 179 was >800 will cont to work on diet and take gem daily doing awesome in this regard [id number] Ed Meehan [facility] Internal Medicine [address],[place] [address] 07/06/2023 09:05:26 07/06/2023 10:47:41 Type 2 diabetes mellitus 55544824 E11.9 has done poorly as his a1c is now up to 9.5 he was up to 11.1 from 10.7 pt states has been limiting his sweets and has actually lost 6 lbsrelates has not been eating well at work tolerating the jardiancef eels good sleep is good appetite is good bowels ok and is tolerating the trulicity but will try to increase to 3mg if availablea nd cont jardiance at 10mg Hypertriglyceridemia 302 247578 E78.2 LDL is was 71 ao prior trig at 300 is questionab le signif given he has been as high as 800 triglyceri althea are only 179 was >800 will cont to work on diet and take gem daily doing awesome in this regard Adult heal th examination [id number] Z00.00 actually doing welll and feels good only exception is the a1c so he will sork on diet noncomplia nce adn we will rechk in [id number] Ed Meehan [facility] Internal Medicine [address] [facility], [employer] [place], [place] 7 10/31/2023 08:43:58 10/31/2023 09:33:50 Depression screening [id number] Z13.31 neg Type 2 constantine betes mellitus 95749680 E11.9 here for [id number] is now down to 7.9has done very well overall 'has changed his snacking and is doing better Hypertriglyceridemia 302 769384 E78.2 LDL is was 71 as prior trig at 300 is questionab le signif given he has been as high as 800 triglyceri althea are only 179 was >800 will cont to work on diet and take gem daily doing awesome in this regard [id number] Ed Meehan [facility] Internal Medicine [address] [facility], [place] 7 02/13/2024 09:36:25 02/13/2024 10:45:41 Type 2 diabetes mellitus 56654438 E11.9 here for [id number] is now down to 7.5 from a high of 11 last yearhas done very well overall 'has changed his snacking and is doing better Migraine a ura without headache [id number] G43.109 has been free for 7 years and doing great on gabapentin started by dr hayley vela Hypertriglyceridemia 302 728838 E78.2 LDL is was 71 as prior trig at 300 is questionab le signif given he has been as high as 800cont atorvastat 80 and rechktrigl ycerides are only 179 was >800 will cont to work on diet and take gem daily doing awesome in this regard Screening for malignant neoplasm of prostate 114330050 Z12.5 will neeed psa Health Concerns Section Related Observation LastModified by Organization Detai ls LastModified Time None Recorded Concern Status LastModified by Organization Details LastModified Time None Recorded Advance Directives Directive None Recorded Payers Encounter Date Sequence Insurance Name Policy Number Policy Razo Covered Member ID Razo Member ID Guarantor Name 11/29/2022 2 [place] [facility] [place] [id number] Rubin C Lepine [id number] Rubin Lepine 11/29/2022 1 MEDICARE B-[place]: [employer] Rubin C Lepine [id number] Rubin Lepine 03/12/2023 2 [place] [facility] [place] [id number] Rubin C Lepine [id number] Rubin Lepine 03/12/2023 1 [place] [employer] Rubin C Lepine [id number] Rubin Lepine 07/06/2023 2 [place] [facility] ([facility] [place] [id number] Rubin C Lepine [id number] Rubin Lepine 07/06/2023 1 MEDICARE [place]: [employer] Rubin C Lepine [id number] Rubin Lepine 10/31/2023 2 [place] [facility] ([facility] [place] [id number] Rubin C Lepine [id number] Rubin Lepine 10/31/2023 1 [place] [employer] Rubin C Lepine [id number] Rubin Lepine 02/13/2024 2 [place] [facility] ([facility] [place] [id number] Rubin C Lepine [id number] Rubin Lepine 02/13/2024 1 [place] [employer] Rubin C Lepine [id number] Rubin Lepine Notes Date Note Type Note Provider Name and Address Organization Details Recorded Time 3 text/htm l Care Management - DiabetesReported bypatient.Prognosis:prog nosis: good Self Care:seeing eye doctor yearly for dilated eye exam; checking feet regularly; normal range of home blood sugars (in the low 100s); no side effects from medications; hemoglobin A1C goal: <7; LDL levels have been: <100; LDL goal: 50; checks blood pressure at home (range 120/70); blood pressure goal: same; hemoglobin A1C levels have been: 7-8 Associated Symptoms:symptoms are usually well controlled; no fatigue; no dizziness; no excessive sweating; no headaches; no confusion; no increased thirst; no increased appetite; no increased urination; no blurred vision; no numbness of feet; no calluses on feet here for rechk of dm feels well and is doing goodwgt is [id number] is 7.4!!! down from 11.1 Ed Meehan DO [address] [place] [address], [id number], [facility] 11/29/2022 12:13:09 3 text/htm l Care Management - DiabetesReported bypatient.Prognosis:expe cted outcome: stabilize; prognosis: good Self Care:seeing eye doctor yearly for dilated eye exam; checking feet regularly; no side effects from medications; hemoglobin A1C goal: <7; hemoglobin A1C levels have been: 8-9;home blood sugar range high Associated Symptoms:symptoms are usually well controlled; no fatigue; no dizziness; no excessive sweating; no headaches; no confusion; no increased thirst; no increased urination; no blurred vision; no numbness of feet; no calluses on feet;increased appetiteCare Management - HypertensionReported bypatient.Self Care:not under emotional stress Severity:symptoms are improving; does not interfere with daily activities Associated Symptoms:no dizziness; no lightheadedness; no chest pain; no shortness of breath; no palpitations; no edema; no calf muscle cramps; no blurred vision; no confusion; no headaches; no fatigue here for rechk and is doing ok relates has been eating poorlyadmits eating too muchand poor choicesno cp no sobworks daily at [facility] Ed Meehan DO [address] [place] [address], [phone], [facility] Internal Medicine 03/12/2023 11:03:42 4 text/htm l MEDS- complaint, no ADRsDIET- non compliantcomplaint with low sugar, lean proteins, lots of veggies, low refined CHO, limits ETOH, doesn't use tobacco productsEXERCISE- does not exercise, recognizes the importance, struggles with motivationexercises regularly- typically:LIPIDS- at goalCMP- within normal limitsAIC- too high at 9.5 although weight is stableMICROALBUMIN- within normal limitsEYE EXAM- last done:next due:2024FOOT EXAM- last done:next due:2024 Ed Meehan DO [address] [place] [address], [id number], [facility] Internal [facility] 07/06/2023 09:35:51 4 text/htm l Care Management - DiabetesReported bypatient.Self Care:seeing eye doctor yearly for dilated eye exam; checking feet regularly; normal range of home blood sugars (in the low 100s); no side effects from medications Associated Symptoms:symptoms are usually well controlled; no fatigue; no dizziness; no excessive sweating; no headaches; no confusion; no increased thirst; no increased appetite; no increased urination; no blurred vision; no numbness of feet; no calluses on feet here for rechk and is doing oknow retired by [employer] Ed Meehan DO [address] [place] [address], [phone], [facility] Internal Medicine 10/31/2023 09:15:24 4 text/htm l here for rechk and is doing good stillrelates has remained good for the diabetes [id number] is 7.5 and stable like last one Ed Meehan DO [address] [place] [address], [phone], [facility] Internal [facility] 02/13/2024 09:58:40
[2024-06-18 13:50] LABS: Estimated Average Glucose 197 mg/dL; Hemoglobin A1C 291.5818 umol/L; Hemoglobin A1c % 8.5 % (<6.0); Total Hemoglobin (HGBA1C) 4231.9999 umol/L
[2024-06-18 13:54] LABS: Albumin Level 4.2 g/dL (3.5-5.0); Alkaline Phosphatase 73 U/L (39-117); Anion Gap 13 (12-20); Aspartate Amino Transferase 30 U/L (5-37); Bilirubin Total 2.3 mg/dL (0.0-1.0); Blood Urea Nitrogen 12 mg/dL (9-16); Carbon Dioxide 27 mmol/L (22-29); Chloride 103 mmol/L (96-108); Cholesterol 129 mg/dL (<200); Estimated Glomerular Filt Rate > 60; Glucose Random 155 mg/dL (60-115); HDL Cholesterol 31 mg/dL (>40); LDL Cholesterol Calculated 55 mg/dL (<100); Potassium 4.1 mmol/L (3.3-5.1); Sodium 139 mmol/L (135-145); Total Protein 7.5 g/dL (6.5-8.0); Triglycerides 216 mg/dL (<150)
[2024-06-18 14:19] LABS: Prostate Specific Antigen 1.05 ng/mL (<0.05-4.0)
[2024-06-18 14:28] LABS: Alanine Aminotransferase 25 U/L (0-40)
== END 2024-06-18 07:42 | disposition home or self-care (01) ==
LOC: HO.MANLDS 07:41
PROVIDERS: Visit Provider Internal Medicine
DX: E11.9 Type 2 diabetes mellitus without complications (principal); E78.2 Mixed hyperlipidemia; Z12.5 Encounter for screening for malignant neoplasm of prostate
CPT/HCPCS: 36415; 80053; 80061; 83036; 84153

== ENCOUNTER 2024-09-16 07:36 | Outpatient (REF) | payer MEDICARE, SELFPAY ==
--- OUTSIDE RECORDS SUMMARY | 2024-09-16 07:39 | XMS_ITS | Data Portability ---
Author Organization [facility] Address [address] [place] [address] Assessment Encounter Date Assessment Date Assessment LastModified by Organization Details LastModified Time 03/12/2023 03/12/2023 [address] [place] [id number] (BATCH MIXER OPERATOR) [facility] MODERATE MUST MEET 2 OUT OF 3 [...] COVERED Not available 03/12/2023 11:02:08 10/31/2023 10/31/2023 [address] [place] [address] (BATCH MIXER OPERATOR) [facility] MODERATE MUST MEET 2 OUT OF 3 [...] COVERED Not available 10/31/2023 09:08:16 02/13/2024 02/13/2024 [address] [place] [address] (BATCH MIXER OPERATOR) [facility] MODERATE MUST MEET 2 OUT OF [...] THAT IS COVERED Not available 02/13/2024 09:51:55 06/27/2024 06/27/2024 [address] [place] [address] (BATCH MIXER OPERATOR) MDM MODERATE MUST MEET 2 OUT OF [...] EACH ELEMENT THAT IS COVERED Not available 06/27/2024 11:06:01 Plan of Treatment Reminders Order Date Submit Date Provider Last Modified By Organization Details Last Modified Time Details Appointments FOLLOW UP 15 2024 11:15A M DR MEEHAN Not available Not available Not available Lab lipid panel, serum 2023 024 [facility], [address] [place] [address], [id number], 02/13/2024 09:58:02 CMP, serum or plasma 2023 024 [facility], [address] [place] [address], [id number], 02/13/2024 09:58:01 PSA, serum or plasma 2023 024 [facility], [address] [place] [address], [id number], 02/13/2024 09:58:02 HbA1c (hemoglo bin A1c), blood 2023 024 [facility], [address] [place] [address], [id number], 02/13/2024 09:58:02 HbA1c (hemoglo bin A1c), blood 2022 023 [facility], [address] [place] [address], [id number], 06/07/2023 11:31:22 CMP, serum or plasma 2022 023 [facility], [address] [place] [address], [id number], 06/07/2023 11:31:23 HbA1c (hemoglo bin A1c), blood 2023 024 [facility], [address] [place] [address], [id number], 06/07/2023 11:31:22 CMP, serum or plasma 2023 024 [facility], [address] [place] [address], [id number], 06/07/2023 11:31:23 Referral None recorded . Procedures None recorded . Surgeries None recorded . Imaging None recorded . Medication Orders None recorded . Patient TargetsNo targets recorded. Patient Instructions Encounter Date Encounter Id Patient Instructions Last Modified By Organization Details Last Modified Time 07/06/2023 [id number] learning about type 2 diabetes Not available 07/06/2023 09:34:05 type 2 diabetes: care instructions Not available 07/06/2023 09:34:04 02/13/2024 [id number] migraine aura without a headache: care instructions [...] A1c), blood A1C 7.5 abnormal Not Available [facility] (Medical Records) [address] [place] [address], [id number], 02/05/2024 11:36:11 Result Notes None recorded. 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 3 11:34:57 [facility] talat 72178109 Completed 201707/09/2019 Ed Meehan DO [address] [place] [address], [phone], [facility] 0 09:35:44 Vertigo 601933289 Completed 201702/13/2024 Ed Meehan DO [address] [place] [address], [phone], [facility] 4 09:54:06 Migraine aura without headache 560638453 Completed 201702/13/2024 migraine causes vertigo Ed Meehan DO [address] [place] [address], [phone], [facility] 4 09:54:00 M? ? ?ni? ? ?re's disease 01755746 Active 2021 Not Available [facility] 3 11:34:57 Gilbert' s syndrome 55058961 Active 2024 Ed Meehan DO [address] [place], [address], [facility] 5 11:10:00 Type 2 diabetes mellitus 64551766 Active 2017 Not Available [facility] 3 11:34:57 Problem Notes None recorded. Procedures Surgical History Date Name Laterality Status Provider Name and Address Organization Details Recorded Time 4 Colonoscopy completed Becky Delgado [facility] 11/06/2018 10:14:37 Imaging Results None recorded. Procedure Notes None recorded. Medical Equipment None Reported. Allergies Allergen ID Allergen Name Allergen Category Reaction Reaction Severity Criticality Documentation Date Start Date Code Code System Note Provider Name and Address Organization Details Recorded Time 4053 Januvia medicatio n diarrhea Not available Not available 12/17/2019 74189 6 RxNorm Becky Delgado [facility] 0 10:52:20 Medications Name Sig Start Date Stop Date Status Note LastModified by Organization Details LastModified Time Prescriptio n - Prior Authorizati on Request active Not Available Not Available N ot Available atorvastati n 80 mg tablet TAKE 1 TABLET BY MOUTH EVERYDAY AT BEDTIME 2024 active Not Available Not Available Not Avai lable atenolol 25 mg tablet take 1 tablet by mouth once a day 07/08 completed Not Available Not Available Not Available gemfibrozil 600 mg tablet TAKE 1 TABLET BY MOUTH TWICE A DAY 2024 active Not Available Not Available Not Avai lable metformin 1,000 mg tablet TAKE 1 TABLET BY MOUTH TWICE A DAY 2024 active Not Available Not Available Not Avai lable gabapentin 300 mg capsule TAKE 4 CAPSULES BY MOUTH AT BEDTIME 2024 active Not Available Not Available Not Avai lable metformin ER 500 mg tablet,exte nded release [...] TAKE 1 TABLET BY MOUTH EVERY DAY active Not Available Not Available No t Available Trulicity 1.5 mg/0.5 mL subcutaneou s pen [...] or INJECT 2MG SUBCUTANE OUSLY EVERY WEEK 08/19 completed Not Available Not Available Not Available Afluria Quad 0064-5185 (PF) 60 mcg (15 mcg x 4)/0.5 [...] injector INJECT 0.5 ML SUBCUTANE OUSLY WEEKLY active Not Available Not Available No t Available Vitals Date Recorded Body height Body mass index (BMI) Body weight Heart rate Oxygen saturation Oxygen saturation in Arterial blood by Pulse oximetry Systolic blood pressure Diastolic blood pressure Provider Name and Address Organization Details Last Updated DateTime 5 168.91 cm 27 kg/m2 10609.6 3 g 97 /min 97 % 97 % 136 mm[Hg] 86 mm[Hg] Christa Vora [facility] 5 10:45:19 Date Recorded Body height Body mass index (BMI) Body weight Systolic blood pressure Diastolic blood pressure Provider Name and Address Organization Details Last Updated DateTime 07/06/2023 168.28 cm 26.7 kg/m2 80276.93 g 140 mm[Hg] 64 mm[Hg] Millie Ingram [facility] 4 09:10:26 Date Recorded Body height Body mass index (BMI) Body weight Heart rate Oxygen saturation Oxygen saturation in Arterial blood by Pulse oximetry Systolic blood pressure Diastolic blood pressure Provider Name and Address Organization Details Last Updated DateTime 4 168.28 cm 26.6 kg/m2 50473.3 3 g 81 /min 95 % 95 % 120 mm[Hg] 68 mm[Hg] Millie Ingram [facility] 4 08:54:21 Date Recorded Body height Body mass index (BMI) Body weight Heart rate Oxygen saturation Oxygen saturation in Arterial blood by Pulse oximetry Systolic blood pressure Diastolic blood pressure Provider Name and Address Organization Details Last Updated DateTime 4 168.91 cm 26.6 kg/m2 76095.9 3 g 90 /min 98 % 98 % 124 mm[Hg] 74 mm[Hg] Gregory Miller [facility] 4 09:41:04 Date Recorded Body height Body mass index (BMI) Body weight Heart rate Oxygen saturation Oxygen saturation in Arterial blood by Pulse oximetry Systolic blood pressure Diastolic blood pressure Provider Name and Address Organization Details Last Updated DateTime 3 168.28 cm 26.7 kg/m2 40554.9 3 g 93 /min 95 % 95 % 108 mm[Hg] 75 mm[Hg] Juli Huang [facility] 3 10:40:42 Social History Question Answer Notes LastModified by Organizat ion Details LastModified Time Tobacco Smoking Status Never Smoker Not Available [facility] 02/17/2020 03:36:23 What Was The Date Of Your Most Recent Tobacco Screening? 06/27/2024 [email or web address] Information not available 06/27/2024 Sex: Unknown Functional Status Question Answer Note LastModified by Organizat ion Details LastModified Time Do you use any illicit or recreational drugs? No Information not available 06/22/2021 Do you or have you ever used any other forms of tobacco or nicotine? No Information not available 06/22/2021 Mental Status None recorded. Family History Nothing Reported. Medical History No medical history recorded. Immunizations Vaccine Type Date Status Note Provider Nam e and Address Organization Details Recorded Time COVID-19, mRNA, LNP-S, PF, 100 mcg/0.5mL dose or 50 mcg/0.25mL dose 02/17/20 21 [facility] 03/23/2021 09:25:31 Influenza, split virus, quadrivalent, preservative 02/17/20 21 [facility] 09:25:38 COVID-19, mRNA, LNP-S, PF, 100 mcg/0.5mL dose or 50 mcg/0.25mL dose 07/15/19 22 completed Jodi Acuña [facility] 07/18/2021 08:14:05 Influenza, split virus, quadrivalent, preservative 01/31/20 18 completed Ed Meehan DO [address] [place] [address], [phone], [facility] 01/31/2018 16:22:55 influenza, unspecified formulation 12/29/19 24 completed Christa Vora [facility] 01/01/2024 11:58:23 Influenza, split virus, quadrivalent, preservative 01/16/20 19 completed Becky Delgado [facility] 05/21/2019 11:59:44 Influenza, split virus, quadrivalent, preservative 12/11/19 20 completed Ed Meehan DO [address] [place] [address], [phone], [facility] 12/13/2019 16:42:57 COVID-19, mRNA, LNP-S, PF, 100 mcg/0.5mL dose or 50 mcg/0.25mL dose 04/28/19 21 completed Ed Meehan DO [address] [place], [address], [facility] 07/05/2020 10:03:07 COVID-19, mRNA, LNP-S, PF, 100 mcg/0.5mL dose or 50 mcg/0.25mL dose 05/28/19 21 completed Ed Meehan DO [address] [place] [address], [phone], [facility] 07/05/2020 10:03:15 pneumococcal polysaccharide PPV23 12/19/19 20 completed Ed Meehan DO [address] [place] [address], [phone], [facility] 07/05/2020 10:03:31 zoster, unspecified formulation 12/19/19 20 completed Ed Meehan DO [address] [place] [address], [phone], [facility] 07/05/2020 10:03:53 zoster recombinant 07/20/19 21 completed Ed Meehan DO [address] [place] [address], [phone], [facility] 07/21/2020 07:14:53 Past Encounters Encounter ID Performer Location Encounter Start Date Encounter Closed Date Diagnosis/Indication Diagnosis SNOMED-CT Code Diagnosis ICD10 Code Diagnosis Note [id number] Ed Meehan [facility] [address] [place] [address],[place] [address] 08/20/2017 13:54:33 08/20/2017 15:06:47 Diabetes mellitus 85582656 E11.9 doing well admits to some diet prob instructed agian re carbs intake and night time eating portion control Essential hypertension 10944736 I10 stable with excellent results at work was initially high but now has improved quite a bit [id number] Ed Meehan DO [facility] [address] [place] [address],[place] [address] 12/12/2017 13:50:14 12/12/2017 14:31:22 Type 2 diabetes mellitus 13818650 E11.9 no change in issues or meds will cont current tx Essential hypertension 70328643 I10 stable with excellent results at work was initially high but now has improved quite a bit [id number] Ed Meehan DO [facility] [address] [facility],[place] [address] 03/15/2018 10:15:42 03/15/2018 15:31:17 Type 2 diabetes mellitus 98393281 E11.9 no change in issues or meds will be better with daily diet and will drop this a1c on hsi own without meds will rechk in june Essential hypertension 62485483 I10 stable with excellent results at work was initially high but now has improved quite a bit Adult heal th examination 281406028 Z00.00 Hypertriglyceridemia 302 467696 E78.2 LDL 57 doing great will cont atorvastat well tolerated [id number] Ed Meehan [facility] [address] [facility],[place] [address] 07/05/2018 10:30:21 07/05/2018 12:19:52 Type 2 diabetes mellitus 67309420 E11.9 still elevated a1c at 7.8 no change in issues or meds will be better with daily diet and will drop this a1c on his own without meds will rechk in october BUT IF IT IS STILL ELEVATED A!C WE WILL ADD METFORMIN Essential hypertension 72950195 I10 stable with excellent results at work was initially high but now has improved quite a bit [id number] Ed Meehan DO [facility] [address] [facility],[place] [address] 11/06/2018 10:02:10 11/06/2018 11:00:55 Essential hypertension 17670186 I10 stable with excellent results at work was initially high but now has improved quite a bit Type 2 constantine betes mellitus 38519495 E11.9 a1c is still elevated at 8 we will review his diet at length IT IS STILL ELEVATED A!C WE WILL ADD METFORMIN 500 and rechk in 3 mo Hypertriglyceridemia 302 359570 E78.2 LDL 57 doing great will cont atorvastat well tolerated [id number] Ed Meehan [facility] [address] [facility],[place] [address] 02/12/2019 09:55:17 02/12/2019 11:24:31 Type 2 diabetes mellitus 43966049 E11.9 a1c is down to 7.4 was 8 we will review his diet at length doing ok with with metformin cont his walking and wgt loss and rechk in 3 mo Hypertriglyceridemia 302 500098 E78.2 level is over 500 so unable to calc the LDL will cont to work on diet Essential hypertension 83594540 I10 stable with excellent results at work no change in meds [id number] Ed Meehan [facility] [address] [facility],[place] [address] 05/21/2019 11:57:32 05/21/2019 13:38:48 Essential hypertension 87848773 I10 stable with excellent results at work no change in meds Type 2 constantine betes mellitus 91286237 E11.9 A1C elevated to 9.3 from 8.0 Discussed importance of lowering glucose dramatical ly Will increase metformin to BID 1000mg Hypertriglyceridemia 302 556645 E78.2 level is over 800 so unable to calc the LDL will cont to work on diet and take gem daily [id number] dE Meehan [facility] [address] [facility],[place] [address] 07/09/2019 09:22:54 07/09/2019 10:02:32 Active or passive immunization 621718051 Z23 Hepatitis C screening 41 1577922 Z11.59 Type 2 constantine betes mellitus 66283216 E11.9 A1C was elevated to 9.3 from 8.0 but is now down to 8.9 Discussed importance of lowering glucose dramatical ly as he is doiung Will increase metformin to BID 1000mg Elevated blood-pressure reading without diagnosis of hypertension 058612108 R03.0 bp has been stable since off the atenolol belive no longer hypertensi ve now with good diet and exercise we will cont to hold the atenolol and monitor [id number] Ed Meehan [facility] [address] [facility],[place] [address] 10/20/2019 11:01:18 10/20/2019 11:53:24 Type 2 diabetes mellitus 35898132 E11.9 A1C was elevated to10.1 and wa s 8.9, 9.3 from 8.0 Discussed importance of lowering glucose metformin to BID 1000mg and is compliant bc of this climb, we will start januvia 100 samples given and rechk in 2 mo a1c if this doesnt work we will have to try to get him Trulicity Hypertriglyceridemia 302 761155 E78.2 level is over 800 so unable to calc the LDL will cont to work on diet and take gem daily [id number] Ed Meehan [facility] [address] [facility],[place] [address] Abdias [facility] [address] 12/17/2019 10:21:06 12/17/2019 11:14:29 Type 2 diabetes mellitus 31122260 E11.9 A1C was improved to 7.8 from [...] down to 7.8 Hepatitis C screening 41 8708246 Z11.59 Hypertriglyceridemia 302 393533 E78.2 level is over 800 so unable to calc the LDL will cont to work on diet and take gem daily [id number] Ed Meehan, [facility] [address] [facility],[place] Abdias [facility] [address] 03/30/2020 08:42:40 03/30/2020 11:36:28 M? ? ?ni? ? ?re's disease 14776535 H81.09 Type 2 constantine betes mellitus 92003180 E11.9 A1C was improved to 7.3 and [...] and is now down to 7.8 Vertigo 852814901 R42 asympotmat ic for 3 years Hypertriglyceridemia 302 127732 E78.2 LDL is now 63 triglyceri althea are only 179 was >800 will cont to work on diet and take gem daily doing awesome [id number] Ed SiegelRolly Meehan [facility] [address] [facility],[place] [address] 07/05/2020 09:56:48 07/05/2020 10:26:24 Type 2 diabetes mellitus 48061217 E11.9 A1C has worsened to 8.3 from [...] carbs and exercised every day Hypertriglyceridemia 302 462167 E78.2 LDL is was 63 triglyceri althea are only 179 was >800 will cont to work on diet and take gem daily doing awesome in this regard [id number] Ed Meehan [facility] [address] [facility],[place] [address] 08/30/2020 10:01:08 08/30/2020 10:36:30 Type 2 diabetes mellitus 79197220 E11.9 has done extremely welll has lost 13 lbs feels good sleep is good appetite is good bowels ok and is tolerating the trulicity we will cont current tx plan and we will look towards cutting down the metformin at some point if this is persisting withn low glucose [id number] Ed Meehan [facility] [address] [facility],[place] [address] 12/01/2020 09:21:12 12/01/2020 14:31:04 Type 2 diabetes mellitus 29235823 E11.9 has done extremely welll a1c is [...] is persisting withn low glucose Hypertriglyceridemia 302 110151 E78.2 LDL is was 63 triglyceri althea are only 179 was >800 will cont to work on diet and take gem daily doing awesome in this regard [id number] Ed Meehan DO [facility] Medicine [address] [facility],[place] [address] 03/23/2021 09:16:11 03/23/2021 14:08:48 Type 2 diabetes mellitus 41002373 E11.9 has done fair as his a1c [...] if this is persisting withn low glucose [id number] Ed Meehan DO [facility] [address] [facility],[place] [address] 06/22/2021 09:04:00 06/22/2021 10:35:00 Type 2 diabetes mellitus 37095531 E11.9 has done fair as his a1c [...] he starts doing well again Hypertriglyceridemia 302 354321 E78.2 LDL is was 50 triglyceri althea are only 179 was >800 will cont to work on diet and take gem daily doing awesome in this regard Migraine a ura without headache 912671833 G43.109 has been free for 6 years [id number] Ed Meehan DO [facility] [address] [facility],[place] [address] 11/14/2021 10:31:55 11/14/2021 11:26:26 Type 2 diabetes mellitus 81109764 E11.9 has done fair as his a1c [...] he starts doing well again Hypertriglyceridemia 302 080499 E78.2 LDL is was 50 triglyceri althea are only 179 was >800 will cont to work on diet and take gem daily doing awesome in this regard M? ? ?ni? ? ?re's disease 70275831 H81.09 stable on the gabapentin [id number] Ed Meehan, [facility] [address] [facility],[place] [address] 05/12/2022 08:54:31 05/15/2022 16:29:20 Type 2 diabetes mellitus 75937731 E11.9 has done fair as his a1c is up to 10.7 from 8.1 but was 8.6 and was 7.5 pt states this was all his prob with poor diet after mom passedrela deborah has not been eating well at workfeels good sleep is good appetite is good bowels ok and is tolerating the trulicityr e ck in august with regular lab Hypertriglyceridemia 302 363487 E78.2 LDL is was 50 triglyceri althea are only 179 was >800 will cont to work on diet and take gem daily doing awesome in this regard Migraine a ura without headache 372501524 G43.109 has been free for 6 years and doing great on gabapentin started by dr hayley vela [id number] Ed Meehan, [facility] [address] [facility],[place] [address] 08/21/2022 10:00:36 08/21/2022 11:29:27 Type 2 diabetes mellitus 82197155 E11.9 has done poorly as his a1c [...] jardiance and Migraine a ura without headache 145698700 G43.109 has been free for 7 years and doing great on gabapentin started by dr hayley vela Vertigo 328066947 R42 asympotmat ic for 3 years [id number] Ed Meehan, [facility] [address] [facility],[place] [address] 11/29/2022 11:21:46 11/29/2022 12:22:58 Hypertriglyceridemia 822434737 E78.2 LDL is was 54 ao trig at 300 is questionab le signif given he has been as high as 800 triglyceri althea are only 179 was >800 will cont to work on diet and take gem daily doing awesome in this regard Type 2 constantine betes mellitus 35084432 E11.9 has done poorly as his a1c [...] at 10mg Migraine a ura without headache 421007765 G43.109 has been free for 7 years and doing great on gabapentin started by dr hayley vela [id number] Ed Meehan, [facility] [address] [facility],[place] [address] 03/12/2023 10:29:53 03/12/2023 11:13:31 Type 2 diabetes mellitus 48547002 E11.9 has done poorly as his a1c [...] nd cont jardiance at 10mg Hypertriglyceridemia 302 406595 E78.2 LDL is was 54 ao trig at 300 is questionab le signif given he has been as high as 800 triglyceri althea are only 179 was >800 will cont to work on diet and take gem daily doing awesome in this regard [id number] Ed Meehan DO [facility] Medicine [address] [facility] [address] 07/06/2023 09:05:26 07/06/2023 10:47:41 Type 2 diabetes mellitus 93335093 E11.9 has done poorly as his a1c [...] nd cont jardiance at 10mg Hypertriglyceridemia 302 510622 E78.2 LDL is was 71 ao prior trig at 300 is questionab le signif given he has been as high as 800 triglyceri althea are only 179 was >800 will cont to work on diet and take gem daily doing awesome in this regard Adult [facility] th examination 071516718 Z00.00 actually doing welll and feels good only exception is the a1c so he will sork on diet noncomplia nce adn we will rechk in [id number] Ed Meehan [facility] [address] [facility],[place] [address] 10/31/2023 08:43:58 10/31/2023 09:33:50 Depression screening 331926167 Z13.31 neg Type 2 constantine betes mellitus 30628888 E11.9 here for locndw1t is now down to 7.9has done very well overall 'has changed his snacking and is doing better Hypertriglyceridemia 302 029532 E78.2 LDL is was 71 as prior trig at 300 is questionab le signif given he has been as high as 800 triglyceri althea are only 179 was >800 will cont to work on diet and take gem daily doing awesome in this regard [id number] Ed Meehan DO [facility] Internal Medicine [address] [facility] [address] [place] [address] [address] 02/13/2024 09:36:25 02/13/2024 10:45:41 Type 2 diabetes mellitus [id number] E11.9 here for tmnwqb1r is now down to 7.5 from a high of 11 last yearhas done very well overall 'has changed his snacking and is doing better Migraine a ura without headache [id number] G43.109 has been free for 7 years and doing great on gabapentin started by dr hayley vela Hypertriglyceridemia 302 904889 E78.2 LDL is was 71 as prior trig at 300 is questionab le signif given he has been as high as 800cont atorvastat 80 and rechktrigl ycerides are only 179 was >800 will cont to work on diet and take gem daily doing awesome in this regard Screening for malignant neoplasm of prostate [id number] Z12.5 will neeed psa [id number] Ed Meehan DO [facility] Internal Medicine [address],[place] [address] 06/27/2024 10:33:52 06/27/2024 11:33:43 Type 2 diabetes mellitus [id number] E11.9 here for rechk a1c is up to 8.5 but he will stop eating too much bread and i agree and will hold off on meds to see if he ccan get back dlvow8i is was down to 7.5 from a high of 11 last yearhas done very well overall 'and tolerates the bydureonha s changed his snacking and is doing better Hypertriglyceridemia 302 657166 E78.2 LDL is was 71 as prior trig at 300 is questionab le signif given he has been as high as 800cont atorvastat 80 and rechktrigl ycerides are only 179 was >800 will cont to work on diet and take gem daily doing awesome in this regard M? ? ?ni? ? ?re's disease [id number] H81.09 stable on the gabapentin Depression screening 171 104247 Z13.31 neg Gilbert's syndrome 58197 000 E80.4 Health Concerns Section Related Observation LastModified by Organization Rosalie steiner LastModified Time None Recorded Concern Status LastModified by Organization Details LastModified Time None Recorded Advance Directives Directive None Recorded Payers Encounter Date Sequence Insurance Name Policy Number Policy Razo Covered Member ID Razo Member ID Guarantor Name 03/12/2023 2 [place] [facility] [place] [id number] Rubin C Lepine [id number] Rubin Lepine 03/12/2023 1 [place] [employer] Rubin C Lepine [id number] Rubin Lepine 07/06/2023 2 [place] [facility] [place] [id number] Rubin C Lepine [id number] Rubin Lepine 07/06/2023 1 [place] [employer] Rubin C Lepine [id number] Rubin Lepine 10/31/2023 2 [place] [facility] [place] [id number] Rubin C Lepine [id number] Rubin Lepine 10/31/2023 1 [place] [employer] [employer] Rubin C Lepine [id number] Rubin Lepine 02/13/2024 2 [place] [facility] [place] [id number] Rubin C Lepine [id number] Rubin Lepine 02/13/2024 1 [place] [employer] [employer] Rubin C Lepine [id number] Rubin Lepine 06/27/2024 2 [place] [facility] [place] [id number] Rubin C Lepine [id number] Rubin Lepine 06/27/2024 1 [place] [employer] Rubin C Lepine [id number] Rubin Lepine Notes Date Note Type [...] poor choicesno cp no sobworks daily at [facility] Ed Meehan DO [address] [place] [address], [phone], [facility] Internal Medicine 03/12/2023 11:03:42 4 text/htm [...] EXAM- last done:next due:2024 Ed Meehan DO [address] [place] [address], [phone], [facility] Internal Medicine 07/06/2023 09:35:51 4 text/htm l Care Management [...] rechk and is doing oknow retired by [employer] Ed Meehan DO [address] [place] [address], [phone], [facility] Internal Medicine 10/31/2023 09:15:24 4 text/htm l here for rechk and is doing good stillrelates has remained good for the diabetes aijjn8i is 7.5 and stable like last one Ed Meehan DO [address] [place], [address], [facility] Internal Medicine 02/13/2024 09:58:40 5 text/htm l Care Management - DiabetesReported bypatient.Self [...] feet here for rechk and is doing good stillrelates has remained good for the diabetes dietbut his 8.5 a1c was 7.5 last time states eating ice cream low sugar every night does eat bread more as of lateno dizziness Ed Meehan DO [address] [place], [address], [facility] Internal Medicine 06/27/2024 11:16:02
[2024-09-16 13:58] LABS: Estimated Average Glucose 189 mg/dL; Hemoglobin A1c % 8.2 % (<6.0)
[2024-09-16 14:24] LABS: Alanine Aminotransferase 29 U/L (0-40); Albumin Level 4.5 g/dL (3.5-5.0); Alkaline Phosphatase 68 U/L (39-117); Anion Gap 15 (12-20); Aspartate Amino Transferase 30 U/L (5-37); Bilirubin Total 2.5 mg/dL (0.0-1.0); Blood Urea Nitrogen 14 mg/dL (9-16); Calcium 9.1 mg/dL (8.4-10.2); Carbon Dioxide 26 mmol/L (22-29); Chloride 103 mmol/L (96-108); Cholesterol 137 mg/dL (<200); Estimated Glomerular Filt Rate > 60; Glucose Random 160 mg/dL (60-115); HDL Cholesterol 31 mg/dL (>40); LDL Cholesterol Calculated 69 mg/dL (<100); Potassium 3.7 mmol/L (3.3-5.1); Sodium 140 mmol/L (135-145); Total Protein 7.3 g/dL (6.5-8.0); Triglycerides 187 mg/dL (<150)
== END 2024-09-16 07:37 | disposition home or self-care (01) ==
LOC: HO.MANLDS 07:36
PROVIDERS: Visit Provider Internal Medicine
DX: E11.9 Type 2 diabetes mellitus without complications (principal)
CPT/HCPCS: 36415; 80053; 80061; 83036

== ENCOUNTER 2024-12-23 07:35 | Outpatient (REF) | payer MEDICARE, SELFPAY ==
--- OUTSIDE RECORDS SUMMARY | 2024-12-23 07:40 | XMS_ITS | Encounter Summary ---
Author Organization [facility] Address [address] [place] [address] Phone Care Team Providers Care Shift Mechanic Name Role Phone Jayneyessica Ed Siegel DO Primary Care Provider [phone] DionteEd DO Unavailable DionteEd DO Unavailable Encounter Details Date Type Department Care Team (Late st Contact Info) Description 11/19/2019 Procedure Pass [facility] Endoscopy Admitting Dept Virtual Department [address] [place] [address] Social History Tobacco Use Types Packs/Day Years Used Date Smoking Tobacco: Never Smokeless Tobacco: Never Alcohol Use Standard Drinks/Week Comments Yes 1 (1 standard drink = 0.6 oz pur e alcohol) Sex and Gender Information Value Date Recorded Sex Assigned at Not on file Legal Sex Male 9:52 PM EDT Gender Identity Not on file Sexual Orientation Not on file documented as of this encounter Plan of Treatment Not on file documented as of this encounter Visit Diagnoses Not on filedocumented in this encounter Care Teams Shift Mechanic Relationship Specialty Start Date End Date Ed Rapp DO PCP - General 01/29/17 Ed Rapp DO [address] [place] [address] Historical LMR Provider 01/30/17 04/23/21 Ed Rapp DO [address] [place] [address] [email or web address] Insurance Assigned Provider 08/17/1806/24 documented as of this encounter Additional Source Comments The information contained in this document represents components of the legal health record. It is not the complete legal health record.[facility]
--- OUTSIDE RECORDS SUMMARY | 2024-12-23 07:42 | XMS_ITS | Clinical Summary ---
Author Organization [facility] Address [address] [place] [address] Phone Care Team Providers Care Rail Transportation Tabeler Name Role Phone Kashmir Meehan Primary Care Provider [phone] Allergies No known active allergies Medications atorvastatin (LIPITOR) 80 MG tablet atorvastatin 80 mg tablet Active gabapentin (NEURONTIN) 300 MG capsule gabapentin 300 mg capsule TAKE 4 CAPSULES BY MOUTH AT BEDTIME Active gemfibroziL (LOPID) 600 MG tablet Take 600 mg by mouth 2 (two) times a day. Active metFORMIN (GLUCOPHAGE) 1000 MG tablet metformin 1,000 mg tablet TAKE 1 TABLET BY MOUTH TWICE A DAY Active multivitamin-m inerals-lutein (CENTRUM SILVER) Tab Take 1 tablet by mouth daily. Active atenolol (TENORMIN) 25 MG tablet Take 25 mg by mouth daily. 020 Discontin ued(Patie nt Discharge ) Social History Tobacco Use Types Packs/Day Years Used Date Smoking Tobacco: Never Smokeless Tobacco: Never Alcohol Use Standard Drinks/Week Comments Yes 1 (1 standard drink = 0.6 oz pur e alcohol) Education Answer Date Recorded Are you interested in more education? Not on bill e 08/11/2022 Are you concerned about learning? Not on file 08/11/2022 No 08/11/2022 No 08/11/2022 Digital Access Answer Date Recorded No 09/09/2022 No 09/09/2022 No 09/09/2022 Reliable internet access at home? Not on file 09/09/2022 Device with a working camera? Not on file Sex and Gender Information Value Date Recorded Sex Assigned at Not on file Legal Sex Male 9:52 PM EDT Gender Identity Not on file Sexual Orientation Not on file Last Filed Vital Signs Vital Sign Reading Time Taken Comments Blood Pressure 112/59 11/19/2019 11:03 AM EDT Pulse 94 11/19/2019 8:38 AM EDT Temperature 36.3 C (97.3 F) 11/19/2019 8:38 AM EDT Respiratory Rate 16 11/19/2019 11:03 AM EDT Oxygen Saturation 96% 11/19/2019 11:03 AM EDT Inhaled Oxygen Concentration - - Weight 82.1 kg (181 lb) 11/17/2019 12:50 PM EDT Height 167.6 cm (5' 6 ) 06/22/2014 2:20 AM EDT Body Mass Index 29.21 06/22/2014 2:20 AM EDT Plan of Treatment Health Maintenance Due Date Last Done Comments Adult Td,Tdap Booster 1955 CREATININE LEVEL 1955 DEPRESSION SCREENING 1969 HEPATITIS C SCREENING 1975 COLOGUARD 2002 FIT TEST 2002 FOBT 2002 SIGMOIDOSCOPY 2002 VIRTUAL COLONOSCOPY 2002 ZOSTER VACCINES (2 of 2) 02/13/2020 12/19/2019 PNEUMOCOCCAL VACCINES (50+ years) (2 of 2 - PCV) 12/18/2020 12/19/2019 INFLUENZA VACCINE (#1) 2024 9, 01/30/2018, 12/26/2016, Additional history exists COVID-19 VACCINE (3 - 2024- season) 2024 06/02/2020, 04/28/2020 LIPID PANEL 11/08/2026 11/08/2021 COLONOSCOPY 11/18/2029 11/19/2019 COLORECTAL CANCER SCREENING 11/18/2029 RSV VACCINE (1 - 1-dose 75+ series) 2032 SMOKING STATUS SCREENING (Once After 26 Yrs) Completed 11/19/2019 HEPATITIS A VACCINES Aged Out No long er eligible based on patient's age to complete this topic HIB VACCINES Aged Out No longer eligi ble based on patient's age to complete this topic MENINGOCOCCAL VACCINES (ACWY) Aged Out No longer eligible based on patient's age to complete this topic MENINGOCOCCAL VACCINES (B) Aged Out N o longer eligible based on patient's age to complete this topic Medical Devices Not on file Procedures Procedure Name Priority Date/Time Associated Diagnosis Comments ENDOSCOPY, COLON 11/19/2019 10:1 6 AM EDT from Last 3 Months or Most Recently Relevant to Health Maintenance Results * ENDOSCOPY, COLON (11/19/2019 10:16 AM EDT) Narrative Transcriptions Nito Pollock MD - 11/19/2019 10:16 AM EDT Patient Name: Rubin Cantrell Attending MD:: NITO POLLOCK MD Procedure Date: 11/19/2019 10:16 AM Date of : 1955 Age: 64 Admit Type: Outpatient Gender: Male Room: [facility] Referring MD: KASHMIR MEEHAN DO Exam Type: Colonoscopy Indications: Screening for colorectal malignant neoplasm, This is the patient's first colonoscopy Medications: Monitored Anesthesia Care Procedure: Informed consent was obtained from the patient after discussion of the indications, limitations, alternatives, benefits, and risks of the procedure. Risks specifically discussed include but are not limited to medication reactions, missed lesions, bleeding, perforation, or the need for emergentsurgery. Throughout the procedure, the patient's bloodpressure, pulse, end-tidal CO2, and oxygen saturations were monitored continuously. The Olympus adult variable colonoscope CF-[id number] #4was introduced through the anus and advanced to the terminal ileum, with identification of theappendiceal orifice and IC valve. The colonoscopy was performed without difficulty. The patient tolerated theprocedure well. The quality of the bowel preparation was excellent. Complications: No immediate complications. Estimated blood loss:None. Findings: The perianal and digital rectal examinations were normal. The terminal ileum appeared normal. Many diverticula were found in the sigmoid colon and descending colon. Internal hemorrhoids were found during retroflexion. The hemorrhoids were mild. A 2 mm polyp was found in the transverse colon. The polyp was sessile. The polyp was removed with a cold snare. Resection and retrieval were complete. Examination of the right colon was repeated in retroflexion and again in NBI. Retroflexion was also performed in the rectum. The exam was otherwise without abnormality. Impression: - The examined portion of the ileum was normal. - Diverticulosis in the sigmoid colon and in the descending colon. - Internal hemorrhoids. - One 2 mm polyp in the transverse colon, removedwith a cold snare. Resected and retrieved. - The examination was otherwise normal. Recommendation: - Patient has a contact number available for emergencies. The signs and symptoms of potential delayed complications were discussed with thepatient. Return to normal activities tomorrow. Writtendischarge instructions were provided to the patient. - Await pathology results. - Repeat colonoscopy in 7 years for surveillance. Nito Pollock NITO POLLOCK MD 11/19/2019 10:40:49 AM This report has been signed electronically. Number of Addenda: 0 Note Initiated On: 11/19/2019 10:16 AM Procedure Code(s): --- Professional --- 54324, Colonoscopy, flexible; with removal of tumor(s), polyp(s), or other lesion(s) by snare technique --- Technical --- 17084, Colonoscopy, flexible; with removal of tumor(s), polyp(s), or other lesion(s) by snare technique CPT copyright 2018 [employer]. All rights reserved. The codes documented in this report are preliminary and upon software design engineer reviewmay be revised to meet current compliance requirements. Procedure Date: 11/19/2019 10:16:48 AM [address] [place], [place] [id number] Kashmir Meehan DO KAVITHA PROCEDURE ORDERABLES Final Re sult from Last 3 Months or Most Recently Relevant to Health Maintenance Insurance HMO POS HMO POS O [place] [address] [place] [address] [place] [address] [place] [address] HMO POS HMO POS HMO POS HMO POS Care Teams Rail Transportation Tabeler Relationship Specialty Start Date End Date Kashmir Meehan DO [email or web address] PCP - General 01/29/17 Additional Source Comments The information contained in this document represents components of the legal health record. It is not the complete legal health record.[facility]
--- OUTSIDE RECORDS SUMMARY | 2024-12-23 07:42 | XMS_ITS | Encounter Summary ---
Author Organization [facility] Address [address] [place] [address] Phone Care Team Providers Care Motor Rebuilder Name Role Phone Jayneyessica Ed Siegel DO Primary Care Provider [phone] DionteEd DO Unavailable DionetEd DO Unavailable Encounter Details Date Type Department Care Team (Late st Contact Info) Description 07/02/2019 Procedure Pass [facility] Endoscopy Admitting Dept Virtual Department [address] [place] [address] Social History Tobacco Use Types Packs/Day Years [...] on filedocumented in this encounter Care Teams Motor Rebuilder Relationship Specialty Start Date End Date Ed Rapp DO PCP - General 01/29/17 Ed Rapp DO [address] [place] [address] Historical LMR Provider 01/30/17 04/23/21 Ed Rapp DO [address] [place] [address] [email or web address] Insurance Assigned Provider 08/17/1806/24 documented as of this encounter Additional Source Comments The information contained in this document represents components of the legal health record. It is not the complete legal health record.[facility]
[2024-12-23 13:25] LABS: Hemoglobin A1C 332.1332 umol/L; Total Hemoglobin (HGBA1C) 4361.8381 umol/L
[2024-12-23 14:00] LABS: Alanine Aminotransferase 31 U/L (0-40); Albumin Level 4.6 g/dL (3.5-5.0); Alkaline Phosphatase 84 U/L (39-117); Anion Gap 14 (12-20); Aspartate Amino Transferase 38 U/L (5-37); Blood Urea Nitrogen 15 mg/dL (9-16); Calcium 9.2 mg/dL (8.4-10.2); Carbon Dioxide 28 mmol/L (22-29); Chloride 102 mmol/L (96-108); Cholesterol 154 mg/dL (<200); Estimated Glomerular Filt Rate > 60; HDL Cholesterol 25 mg/dL (>40); Potassium 4.0 mmol/L (3.3-5.1); Sodium 140 mmol/L (135-145); Total Protein 7.6 g/dL (6.5-8.0); Triglycerides 452 mg/dL (<150)
== END 2024-12-23 07:36 | disposition home or self-care (01) ==
LOC: HO.MANLDS 07:35
PROVIDERS: Visit Provider Internal Medicine
DX: E11.9 Type 2 diabetes mellitus without complications (principal)
CPT/HCPCS: 36415; 80053; 80061; 83036

== ENCOUNTER 2025-03-25 07:40 | Outpatient (REF) | payer MEDICARE, SELFPAY ==
--- OUTSIDE RECORDS SUMMARY | 2025-03-25 07:59 | XMS_ITS | Encounter Summary ---
Author Organization [facility] Address [address] [place] [address] Phone Care Team Providers Care Data Entry Assistant Name Role Phone Jayneyessica Ed Siegel DO Primary Care Provider [phone] DionteEd DO Unavailable DionteEd DO Unavailable Encounter Details Date Type Department Care Team (Late st Contact Info) Description 11/19/2019 Procedure Pass [facility] Endoscopy Admitting Dept Virtual Department [address] [place] [address] Social History Tobacco Use Types Packs/Day Years [...] on filedocumented in this encounter Care Teams Data Entry Assistant Relationship Specialty Start Date End Date Ed Rapp DO PCP - General 01/29/17 Ed Rapp DO [address] [place] [address] Historical LMR Provider 01/30/17 04/23/21 Ed Rapp DO [address] [place] [address] [email or web address] Insurance Assigned Provider 08/17/1806/24 documented as of this encounter Additional Source Comments The information contained in this document represents components of the legal health record. It is not the complete legal health record.[facility]
--- OUTSIDE RECORDS SUMMARY | 2025-03-25 07:59 | XMS_ITS | Encounter Summary ---
Author Organization [facility] Address [address] [place] [address] Phone Care Team Providers Care Chief Projectionist Name Role Phone Jayneyessica Ed Siegel DO Primary Care Provider [phone] DionteEd DO Unavailable DionteEd DO Unavailable Encounter Details Date Type Department Care Team (Late st Contact Info) Description 07/02/2019 Procedure Pass [facility] Endoscopy Admitting Dept Virtual Department [address] [place] [address] Social History Tobacco Use Types Packs/Day Years [...] on filedocumented in this encounter Care Teams Chief Projectionist Relationship Specialty Start Date End Date Ed Rapp DO PCP - General 01/29/17 Ed Rapp DO [address] [place] [address] Historical LMR Provider 01/30/17 04/23/21 Ed Rapp DO [address] [place] [address] [email or web address] Insurance Assigned Provider 08/17/1806/24 documented as of this encounter Additional Source Comments The information contained in this document represents components of the legal health record. It is not the complete legal health record.[facility]
--- OUTSIDE RECORDS SUMMARY | 2025-03-25 07:59 | XMS_ITS | Clinical Summary ---
Author Organization [facility] Address [address] [place] [address] Phone Care Team Providers Care Fourth Mate Name Role Phone Kashmir Meehan Primary Care Provider [phone] Allergies No known active allergies Medications atorvastatin [...] Additional history exists COVID-19 VACCINE (3 - season) 2024 06/02/2020, 04/28/2020 LIPID PANEL 11/08/2026 11/08/2021 COLONOSCOPY 11/18/2026 11/19/2019 COLORECTAL CANCER SCREENING 11/18/2026 RSV VACCINE (1 - 1-dose 75+ series) [...] 11/19/2019 10:16 AM EDT Patient Name: Rubin Navadevin Attending MD:: NITO POLLOCK MD Procedure Date: 11/19/2019 10:16 AM Date of : 1955 Age: 64 Admit Type: Outpatient Gender: Male Room: [facility] Referring MD: KASHMIR MEEHAN DO Exam Type: [...] monitored continuously. The Olympus adult variable colonoscope [id number] #4was introduced through the anus and advanced [...] 10:16 AM Procedure Code(s): --- Professional --- 00926, Colonoscopy, flexible; with removal of tumor(s), polyp(s), or other lesion(s) by snare technique --- Technical --- 97958, Colonoscopy, flexible; with removal of tumor(s), polyp(s), or other lesion(s) by snare technique CPT copyright 2018 [employer]. All rights reserved. The codes documented in this report are preliminary and upon talent development analyst reviewmay be revised to meet current compliance requirements. Procedure Date: 11/19/2019 10:16:48 AM [address] [place], [place] [id number] Kashmir Meehan DO KAVITHA PROCEDURE ORDERABLES Final Re sult from Last 3 Months or Most Recently Relevant to Health Maintenance Insurance HMO POS HMO POS HMO [place] [address] [place] [address] [place] [address] [place] [address] HMO POS HMO [place] [address] [place] [address] HMO POS Care Teams Fourth Mate Relationship Specialty Start Date End Date Kashmir Meehan DO [email or web address] PCP - General 01/29/17 Additional Source Comments The information contained in this document represents components of the legal health record. It is not the complete legal health record.[facility]
== END 2025-03-25 07:41 ==
LOC: HO.MANLDS 07:40
PROVIDERS: Visit Provider Internal Medicine
DX: E11.9 Type 2 diabetes mellitus without complications (principal)
CPT/HCPCS: 36415; 82043; 82570; 83036